=== PATIENT | female | born 1965 | race Caucasian/White ===

== ENCOUNTER 2017-02-19 16:36 | Inpatient (IN) | payer OTHER ==
[2017-02-19 18:09] LABS: Hematocrit 32 % (35-47); Hemoglobin 10.3 g/dl (12.0-16.0); Mean Corpuscular HGB Conc 32 g/dl (31-36); Mean Corpuscular Hemoglobin 28 pg (27-31); Mean Corpuscular Volume 87 fL (80-97); Mean Platelet Volume 10 um3 (7.4-10.4); Red Cell Distribution Width 13 % (10.5-15); White Blood Count 8.8 10^3/ul (3.5-10.8)
[2017-02-19 18:15] LABS: Urine Bacteria 2+ (Absent); Urine Bilirubin Negative (Negative); Urine Glucose Negative (Negative); Urine Nitrite Positive (Negative)
[2017-02-19 18:25] LABS: ALT 6 U/L (7-52); AST 8 U/L (13-39); Albumin 3.5 g/dL (3.2-5.2); Alkaline Phosphatase 37 U/L (34-104); Anion Gap 7 mmol/L (2-11); BUN/Creatinine Ratio 6.9 (8-20); Blood Urea Nitrogen 11 mg/dL (6-24); CO2 Carbon Dioxide 32 mmol/L (22-32); Calcium 9.4 mg/dL (8.6-10.3); Chloride 95 mmol/L (101-111); EGFR African American 44.1 (>60); EGFR Non-African American 34.3 (>60); Globulin 3.9 g/dL (2-4); Glucose 92 mg/dL (70-100); Potassium 3.1 mmol/L (3.5-5.0); Sodium 134 mmol/L (133-145); Total Protein 7.4 g/dL (6.4-8.9)
[2017-02-19 18:29] LABS: Benzodiazepine Urine Screen None Detected (None Detect)
--- NOTE | 2017-02-19 18:34 | ED ---
Osiel Valentino Salem, scribed for Justin Nixon MD on 02/19/17 at 1655 . Psychiatric Complaint - HPI Summary HPI Summary: Patient is a 51 y/o F who presents to the ED with a mental health complaint. She states that she has been feeling poorly for the past 6 months, worse in the last month. She states that she has been taking Wellbutrin for 4 years and Fluoxetine for 2 years, prescribed by her PCP (Dr. Torres). She reports loss of appetite and SI without a plan. She states that she was hospitalized for mental health approximately 6 year ago. - History Of Current Complaint Chief Complaint: EDMentalHealth Time Seen by Provider: 02/19/17 16:44 Hx Obtained From: Patient Onset/Duration: Gradual Onset, Lasting Weeks, Still Present Timing: Constant Severity Initially: Moderate Severity Currently: Moderate Character: Depressed Aggravating Factor(s): Nothing Alleviating Factor(s): Nothing Associated Signs And Symptoms: Positive: Negative Related History: Positive For: Prior Psychiatric Issues Has Suicidal: Reports: Thoughts. Denies: With A Plan - Allergies/Home Medications Allergies/Adverse Reactions: Allergies Allergy/AdvReac Type Severity Reaction Status Date / Time Diazepam [From Valium] Allergy Unknown Verified 02/19/17 17:08 Reaction Details Meperidine [From Demerol HCl] Allergy Unknown Verified 02/19/17 17:08 Reaction Details Midazolam [From Versed] Allergy Unknown Verified 02/19/17 17:08 Reaction Details Topiramate [From Topamax] Allergy Unknown Verified 02/19/17 17:08 Reaction Details Trazodone Allergy Unknown Verified 02/19/17 17:08 Reaction Details PMH/Surg Hx/FS Hx/Imm Hx Previously Healthy: Yes Psychiatric History: Reports: Hx Depression - Surgical History Surgery Procedure, Year, and Place: None. Infectious Disease History: No Infectious Disease History: Denies: Traveled Outside the [place] in Last 30 Days - Family History Known Family History: Positive: Hypertension, Diabetes, Other - COPD. Migraines. - Social History Alcohol Use: None Hx Substance Use: No Substance Use Type: Reports: None Hx Tobacco Use: No Review of Systems Positive: Other - Loss of appetite. Positive: Depressed, Other - SI without a plan. All Other Systems Reviewed And Are Negative: Yes Physical Exam Triage Information Reviewed: Yes Vital Signs On Initial Exam: Initial Vitals Temp Pulse Resp BP Pulse Ox 97.7 F 108 20 141/67 100 02/19/17 16:40 02/19/17 16:40 02/19/17 16:40 02/19/17 16:40 02/19/17 16:40 Vital Signs Reviewed: Yes Appearance: Positive: Well-Appearing, No Pain Distress, Obese Skin: Positive: Warm, Skin Color Reflects Adequate Perfusion, Dry Head/Face: Positive: Normal Head/Face Inspection Eyes: Positive: Normal Neck: Positive: Supple, Nontender Respiratory/Lung Sounds: Positive: Clear to Auscultation, Breath Sounds Present Cardiovascular: Positive: RRR Abdomen Description: Positive: Nontender, Soft Musculoskeletal: Positive: Normal, Strength/ROM Intact Neurological: Positive: Normal Diagnostics - Vital Signs Vital Signs Temp Pulse Resp BP Pulse Ox 02/19/17 16:40 97.7 F 108 20 141/67 100 - Laboratory Lab Results: Lab Results 02/19/17 02/19/17 02/19/17 Range/Units 17:58 17:58 18:00 WBC 8.8 (3.5-10.8) 10^3/ul RBC 3.70 L (4.0-5.4) 10^6/ul Hgb 10.3 L (12.0-16.0) g/dl Hct 32 L (35-47) % MCV 87 (80-97) fL MCH 28 (27-31) pg MCHC 32 (31-36) g/dl RDW 13 (10.5-15) % Plt Count 338 (150-450) 10^3/ul MPV 10 (7.4-10.4) um3 Neut % (Auto) 79.6 (38-83) % Lymph % (Auto) 13.0 L (25-47) % Coffee % (Auto) 6.4 (1-9) % Eos % (Auto) 0.5 (0-6) % Baso % (Auto) 0.5 (0-2) % Absolute Neuts (auto) 7.0 (1.5-7.7) 10^3/ul Absolute Lymphs (auto) 1.2 (1.0-4.8) 10^3/ul Absolute Monos (auto) 0.6 (0-0.8) 10^3/ul Absolute Eos (auto) 0 (0-0.6) 10^3/ul Absolute Basos (auto) 0 (0-0.2) 10^3/ul Absolute Nucleated RBC 0 10^3/ul Nucleated RBC % 0 Sodium 134 (133-145) mmol/L Potassium 3.1 L (3.5-5.0) mmol/L Chloride 95 L (101-111) mmol/L Carbon Dioxide 32 (22-32) mmol/L Anion Gap 7 (2-11) mmol/L BUN 11 (6-24) mg/dL Creatinine 1.60 H (0.51-0.95) mg/dL Est GFR ( Amer) 44.1 (>60) Est GFR (Non-Af Amer) 34.3 (>60) BUN/Creatinine Ratio 6.9 L (8-20) Glucose 92 (70-100) mg/dL Calcium 9.4 (8.6-10.3) mg/dL Total Bilirubin 0.30 (0.2-1.0) mg/dL AST 8 L (13-39) U/L ALT 6 L (7-52) U/L Alkaline Phosphatase 37 (34-104) U/L Total Protein 7.4 (6.4-8.9) g/dL Albumin 3.5 (3.2-5.2) g/dL Globulin 3.9 (2-4) g/dL Albumin/Globulin Ratio 0.9 L (1-3) TSH Pending Urine Color Yellow Urine Appearance Cloudy Urine pH 6.0 (5-9) Ur Specific Bovina 1.011 (1.010-1.030) Urine Protein Negative (Negative) Urine Ketones Negative (Negative) Urine Blood 1+ H (Negative) Urine Nitrate Positive H (Negative) Urine Bilirubin Negative (Negative) Urine Urobilinogen Negative (Negative) Ur Leukocyte Esterase 3+ H (Negative) Urine WBC (Auto) 3+(>20/hpf) H (Absent) Urine RBC (Auto) 3+(>10/hpf) H (Absent) Ur Squamous Epith Cells Present H (Absent) Urine Bacteria 2+ H (Absent) Hyaline Casts Present H (Absent) Urine Glucose Negative (Negative) Salicylates Pending Urine Opiates Screen (None Detect) Acetaminophen Pending Ur Barbiturates Screen (None Detect) Ur Phencyclidine Scrn (None Detect) Ur Amphetamines Screen (None Detect) U Benzodiazepines Scrn (None Detect) Urine Cocaine Screen (None Detect) U Cannabinoids Screen (None Detect) Serum Alcohol Pending 02/19/17 Range/Units 18:00 WBC (3.5-10.8) 10^3/ul RBC (4.0-5.4) 10^6/ul Hgb (12.0-16.0) g/dl Hct (35-47) % MCV (80-97) fL MCH (27-31) pg MCHC (31-36) g/dl RDW (10.5-15) % Plt Count (150-450) 10^3/ul MPV (7.4-10.4) um3 Neut % (Auto) (38-83) % Lymph % (Auto) (25-47) % Coffee % (Auto) (1-9) % Eos % (Auto) (0-6) % Baso % (Auto) (0-2) % Absolute Neuts (auto) (1.5-7.7) 10^3/ul Absolute Lymphs (auto) (1.0-4.8) 10^3/ul Absolute Monos (auto) (0-0.8) 10^3/ul Absolute Eos (auto) (0-0.6) 10^3/ul Absolute Basos (auto) (0-0.2) 10^3/ul Absolute Nucleated RBC 10^3/ul Nucleated RBC % Sodium (133-145) mmol/L Potassium (3.5-5.0) mmol/L Chloride (101-111) mmol/L Carbon Dioxide (22-32) mmol/L Anion Gap (2-11) mmol/L BUN (6-24) mg/dL Creatinine (0.51-0.95) mg/dL Est GFR ( Amer) (>60) Est GFR (Non-Af Amer) (>60) BUN/Creatinine Ratio (8-20) Glucose (70-100) mg/dL Calcium (8.6-10.3) mg/dL Total Bilirubin (0.2-1.0) mg/dL AST (13-39) U/L ALT (7-52) U/L Alkaline Phosphatase (34-104) U/L Total Protein (6.4-8.9) g/dL Albumin (3.2-5.2) g/dL Globulin (2-4) g/dL Albumin/Globulin Ratio (1-3) TSH Urine Color Urine Appearance Urine pH (5-9) Ur Specific Bovina (1.010-1.030) Urine Protein (Negative) Urine Ketones (Negative) Urine Blood (Negative) Urine Nitrate (Negative) Urine Bilirubin (Negative) Urine Urobilinogen (Negative) Ur Leukocyte Esterase (Negative) Urine WBC (Auto) (Absent) Urine RBC (Auto) (Absent) Ur Squamous Epith Cells (Absent) Urine Bacteria (Absent) Hyaline Casts (Absent) Urine Glucose (Negative) Salicylates Urine Opiates Screen None detected (None Detect) Acetaminophen Ur Barbiturates Screen Presumptive positive H (None Detect) Ur Phencyclidine Scrn None detected (None Detect) Ur Amphetamines Screen None detected (None Detect) U Benzodiazepines Scrn None detected (None Detect) Urine Cocaine Screen None detected (None Detect) U Cannabinoids Screen None detected (None Detect) Serum Alcohol Result Diagrams: 02/19/17 17:58 02/19/17 17:58 Lab Statement: Any lab studies that have been ordered have been reviewed, and results considered in the medical decision making process. Course/Dx - Course Course Of Treatment: Ms. Chery is medically cleared and awaiting a MHE. - Differential Dx/Clinical Impression Provider Diagnosis: Depression - Physician Notifications Discussed Care Of Patient With: Dr. Hopper at change of shift Discharge - Discharge Plan Condition: Stable Disposition: OTHER Discharge Disposition Comment: change of shift Referrals: Jagruti Torres DO [Primary Care Provider] - The documentation as recorded by the Osiel gray Salem accurately reflects the service I personally performed and the decisions made by , Justin Nixon MD.
[2017-02-19 18:44] LABS: Acetaminophen < 15 mcg/mL; Alcohol < 10 mg/dL (<10); Salicylate < 2.50 mg/dL (<30)
[2017-02-19 18:49] LABS: TSH (Thyroid Stimulating Horm) 0.94 mcIU/mL (0.34-5.60)
[2017-02-19] MEDS ORDERED: Ciprofloxacin TAB* 500 MG PO ONE (19:19)
[2017-02-19] MEDS ORDERED: Nicotine Inhaler* 10 MG AMP INH PRN (23:14)
[2017-02-19] MEDS ORDERED: diPHENhydraMINE PO* 50 MG PO PRN (23:16)
[2017-02-19] MEDS ORDERED: Dicyclomine CAP* 10 MG PO PRN (23:30)
[2017-02-20] MEDS: Omeprazole CAP* 20 MG PO SCH ×3 (01:00→22:08)
[2017-02-20] MEDS: Amitriptyline TAB* 100 MG PO SCH ×2 (01:00→22:07)
[2017-02-20] MEDS: FLUoxetine CAP* 20 MG PO SCH ×2 (01:00→09:30)
[2017-02-20] MEDS ORDERED: Mouth Piece, Nicotine* 1 EACH CARTRIDGE INH ONE (01:00)
[2017-02-20] MEDS: Mometasone/Formoter 200/5 MDI INH SCH ×3 (01:00→22:07)
[2017-02-20] MEDS ORDERED: Hydrochlorothiazide TAB* 25 MG PO SCH (09:00)
[2017-02-20] MEDS ORDERED: BuPROPion XL* 300 MG TAB.XL PO SCH (09:00)
[2017-02-20] MEDS: Sucralfate TAB* 1 GM PO SCH ×4 (10:17→22:08)
[2017-02-20] MEDS: Ciprofloxacin TAB* 500 MG PO SCH ×2 (15:03→22:08)
[2017-02-20 16:33] LABS: Calcium 9.4 mg/dL (8.6-10.3); EGFR African American 47.5 (>60); EGFR Non-African American 36.9 (>60); Potassium 3.4 mmol/L (3.5-5.0)
--- NOTE | 2017-02-20 16:50 | RAD ---
Indication: Urinary tract infection, acute renal injury. CT of the abdomen and pelvis was performed without oral or IV contrast administration. Coronal and sagittal reconstructed images were obtained. There is moderate degree of right hydronephrosis. Right hydroureter is noted. There is a calculus in the right distal ureter measuring approximately 12 mm in greatest dimension. This is at the level of the right sacroiliac joint. The left kidney demonstrates a nonobstructing calculi in the lower pole of the left kidney measuring up to 12 mm. No obstruction of the left kidney or ureter is noted. The liver is normal in size. No focal lesions or intrahepatic duct dilatation is noted. The spleen is normal in size. There is a hiatal hernia present. The gallbladder is partially contracted with no calcified gallstones. Common duct is not dilated. Pancreas demonstrates no mass or pancreatic duct dilatation. The spleen is normal in size. No adrenal masses are noted. No dilated loops of bowel are noted. Colon is filled with stool. Aorta and inferior vena cava are unremarkable. CT of the pelvis demonstrates no retroperitoneal or pelvic lymphadenopathy. The uterus and ovaries are otherwise unremarkable. No free fluid is identified. The bony structures are otherwise unremarkable. IMPRESSION: There is a 12 mm calculus in the right distal ureter at the inferior sacroiliac joint on the right. There is moderate degree of right hydronephrosis and hydroureter. Additional 12 mm calculi is noted in the lower pole of the left kidney without obstruction. There is a large fixed type hiatal hernia noted.
[2017-02-20] MEDS ORDERED: Buffered Lidocaine 1% SYRIN* 5 ML/SYR SYRINGE INTRADERM ONE (22:13)
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
--- NOTE | 2017-02-21 01:39 | CONS ---
[facility] MEDICINE CONSULTATION REPORT: DATE OF ADMISSION: 02/19/17 DATE OF CONSULTATION: 02/20/17 PRIMARY CARE PROVIDER: Dr. Torres. ATTENDING PHYSICIAN: Dr. Omid Davis. CONSULTING PHYSICIAN: Abeba Henry DO (dictation provided by Alyssia Pace NP ). REASON FOR CONSULTATION: UTI with acute kidney injury and right-sided flank pain. HISTORY OF PRESENT ILLNESS: Ms. Chery is a 51-year-old female with a past medical history of achalasia, status post esophagectomy in 2003 at the [facility] as well as migraines and asthma, who presented on 02/19/17, with concern for depression and was admitted to the mental health unit. Please see the information from the H and P of our mental health providers for full details. Ms. Chery had complained of dysuria at the time of admission and her urinalysis was positive with positive nitrites and 3+ leuk esterase. At that time, she received ciprofloxacin. In addition, it was noted that her creatinine was elevated up to 1.60. The patient also complains of right-sided flank pain. She has a history of kidney stones. She reports having a fever of 100.2 at home. She reports having this discomfort with dysuria and flank pain for approximately 2 weeks. She reports being seen previously in the emergency room for these complaints and completed a course of antibiotics for that; however, I do not see where she was in our emergency room for that complaint. She confirms nausea. Denies chest pain, shortness of breath. She has been eating and drinking okay. PAST MEDICAL HISTORY: 1. Lower extremity edema. 2. Migraines. 3. Asthma. 4. Achalasia, status post esophagectomy. 5. History of kidney stones. MEDICATIONS: 1. Amitriptyline 100 mg p.o. at bedtime. 2. Bupropion XL 300 mg p.o. daily. 3. Ciprofloxacin 500 mg p.o. q.12 hours. 4. Dicyclomine 10 mg p.o. q.a.c. p.r.n. 6. Fluoxetine 40 mg p.o. daily. 7. Hydrochlorothiazide 12.5 mg p.o. daily. 8. Levalbuterol 1 puff inhaled b.i.d. 9. Nicotine inhaler as needed. 10. Omeprazole 40 mg p.o. b.i.d. 11. Sucralfate 1 g p.o. 4 times a day. 12. Diphenhydramine 50 mg p.o. at bedtime. ALLERGIES: To DIAZEPAM, MEPERIDINE, MIDAZOLAM, TOPIRAMATE, and TRAZODONE. FAMILY HISTORY: The patient reports that her dad had hypertension and obstructive sleep apnea. Mom had COPD and migraines. SOCIAL HISTORY: The patient is a smoker. No reported alcohol or drug use. REVIEW OF SYSTEMS: A 14-point review of systems was completed with Ms. Chery and all those not mentioned above are negative. PHYSICAL EXAM: Vital Signs: Temperature 98.1, pulse rate 98, respiratory rate 16, O2 saturation 100% on room air, blood pressure 118/58. General: Ms. Chery is sitting up in the room. She is in no acute distress. Neuro: She is alert and oriented x3. She moves all extremities equally. There is no facial asymmetry or focal weakness. Extraocular movements are intact. Heart: S1, S2. No murmur, rub, or gallop and regular. Lungs are clear to auscultation bilaterally with no accessory muscle use and good aeration. The abdomen is soft , nontender. The patient does have right CVA tenderness. Extremities: No cyanosis or edema. Skin is intact. DIAGNOSTIC STUDIES/LAB DATA: WBC 8.8, hemoglobin 10.3, hematocrit 32, platelet count 338. Sodium 134, potassium 3.1, chloride 95, serum bicarbonate 32, BUN 11 , creatinine 1.60, glucose 92. Urine shows positive nitrites and 3+ leuk esterase. Tox screen is positive for barbiturates. ASSESSMENT: Ms. Chery is a 51-year-old female with a past medical history of depression, achalasia, status post esophagectomy, migraines, lower extremity edema and asthma, who presented to the hospital on 02/19/17 with concerns for depression. She has been admitted to the behavioral health unit, but found to have a urinary tract infection with concern for acute kidney injury and right- sided CVA tenderness. Our plans are as follows: 1. Depression. Management will continue to be per mental health providers. 2. Positive UA with acute kidney injury and right-sided CVA tenderness. The patient will go for a CT scan to assess for kidney stone or hydronephrosis. She does have a history of kidney stones. She has been started on ciprofloxacin. The last urine culture I see from our hospital was on 12/30/16, it grew E. coli that was pansensitive. I think it is safe to continue with Cipro for now and await sensitivities on the current culture. The patient has no fever. Her vitals are stable. 3. Achalasia. Continue home sucralfate and omeprazole. 4. Smoking history. The patient is encouraged to stop smoking, she does have a nicotine inhaler available. 5. DVT prophylaxis. Not indicated. 6. Disposition will be per mental health unit providers. TIME SPENT: Approximately 60 minutes were spent on the consultation of this patient, more than half time spent with her at the bedside reviewing the events leading up to this hospitalization, performing the physical examination, and reviewing the plan of care. ALYSSIA PACE NP CC: Dr. Torres* [id number]/[facility] #: [id number] SUNITA
[2017-02-21] MEDS ORDERED: Iohexol 180 (CONTRAST) 10 ML SDV IV ONE (07:18)
[2017-02-21 07:53] LABS: Manual Entry Verification HAN0055; UR Preg Internal Control QC Line Present
[2017-02-21] MEDS ORDERED: fentaNYL* 50 MCG/ML 2 ML VIAL (100 MCG VIAL) ONE (08:24)
[2017-02-21] MEDS ORDERED: cefTRIAXone VIAL(*) 1,000 MG in NS 0.9% 50 ML* 50 ML IVPB ONE (08:30)
[2017-02-21] MEDS ORDERED: Lidocaine 2% PF * 5 ML VIAL ONE (08:43)
[2017-02-21] MEDS ORDERED: Ketorolac INJ* 30 MG/ML 1 ML VIAL ONE (08:43)
[2017-02-21] MEDS ORDERED: Propofol* 10 MG/ML 20 ML BTL IV PUSH ONE (08:43)
[2017-02-21] MEDS ORDERED: Dexamethasone IV* 4 MG/ML 1 ML (4 MG) ONE (08:43)
[2017-02-21] MEDS ORDERED: Famotidine IV* 10 MG/ML 2 ML (20 mg) ONE (08:43)
[2017-02-21] MEDS ORDERED: fentaNYL* 50 MCG/ML 2 ML VIAL (100 MCG VIAL) IV PRN (09:06)
[2017-02-21] MEDS ORDERED: Ondansetron INJ* 2 MG/ML VIAL IV PRN (09:06)
[2017-02-21] MEDS ORDERED: Levalbuterol 0.63MG/3ML NEB INH PRN (09:06)
[2017-02-21] MEDS ORDERED: Acetaminophen TAB* 325 MG PO PRN (09:06)
[2017-02-21] MEDS ORDERED: PROCHLORPERAZINE INJ 5 MG/ML 2 ML VIAL IV PRN (09:06)
[2017-02-21 10:47] VITALS: BP 119/68
--- NOTE | 2017-02-21 11:07 | DS ---
Subjective - Subjective Discharge Date: 02/21/17 Subjective: Following hospitalist intervention yesterday for UTI and kidney evaluation, Nicolasa was discharged this morning to the surgical service. Treatment Course & Assessment Clinical Course & Impression: 51-year-old female with a history of extensive outpatient psychiatric treatment , one prior psychiatric hospitalization, chronic functional difficulties, chronic health problem. She is admitted due to concern over impairment and functioning and elevated distress in the setting of a subacute deterioration with weight loss, somatic problems, social withdrawal, dysphoria, and anxiety. 02/21/17 Clear for discharge to medical/surgical services. Nicolasa settled into the unit over one day, was safe on checks, and free of suicidal ideation. She cooperated with evaluations. She noted ongoing elevated stress and dysphoria, with difficulty coping. Medication management continued the outpatient medication regimen. Medical involve Hospitalist consultation for mgt. of UTI and evaluation of renal issues. On CT scan of abdomen there was a 12mm calculus in the right distal ureter. Nicolasa was discharged for surgical intervention with plan for inpatient surgical recovery with IV antibiotics. Determination on whether she returns to the unit will be as per her choice and her evaluation in that setting. Risk concern centered on deterioration of her functioning. She was not acutely suicidal and her suicidal risk is assessed as low enough for outpatient status ( factors are her benign ideation in that regard and absence of other impairing factors) - her profile, history and conditions put her at elevated chronic risk for suicide. Clear for Discharge: Other - requires other medical intervention Inpatient DSM-IV Dx: Depressed, anxiety disorder, not otherwise specified; r/o PTSD. Discharge Planning - Discharge Planning Discharge Plan: Inpatient Hospitalization Recommendations for Continuing Care: Medication Management, Psychotherapy, Primary Care Followup, Specialty Followup Discharge Planning: Prescriptions provided for discharge [] Yes [x] No Follow up care details as per medicare contact specialist arrangements.
--- NOTE | 2017-02-21 11:18 | RAD ---
CPT II Codes: 6045F Indication: Right ureteral calculi. Approximately 23 seconds of fluoroscopy time was used. 4 spot images were obtained. Retrograde pyelogram demonstrates right hydronephrosis. There is placement of a right ureteral stent. IMPRESSION: Placement of right ureteral stent.
== END 2017-02-21 09:15 | disposition short-term general hospital (02) | DRG 756 ==
LOC: ED 16:36 → BSU 02-20 00:52
PROVIDERS: ADMIT Psychiatry & Neurology Psychiatry; ATTEND Psychiatry & Neurology Psychiatry
DX: F41.8 Other specified anxiety disorders (principal); R45.851 Suicidal ideations; N20.1 Calculus of ureter; N39.0 Urinary tract infection, site not specified; Q39.5 Congenital dilatation of esophagus; B96.20 Unspecified Escherichia coli [E. coli] as the cause of diseases classified elsewhere; J45.909 Unspecified asthma, uncomplicated; M19.90 Unspecified osteoarthritis, unspecified site; K21.9 Gastro-esophageal reflux disease without esophagitis; Z79.899 Other long term (current) drug therapy; Z88.8 Allergy status to other drugs, medicaments and biological substances; Z91.410 Personal history of adult physical and sexual abuse; G43.909 Migraine, unspecified, not intractable, without status migrainosus; Z87.442 Personal history of urinary calculi; Z82.49 Family history of ischemic heart disease and other diseases of the circulatory system; Z83.6 Family history of other diseases of the respiratory system; F17.210 Nicotine dependence, cigarettes, uncomplicated; N17.9 Acute kidney failure, unspecified
CPT/HCPCS: 36415; 74176; 74420; 80048; 80053; 80307; 80320; 80329; 81003; 81015; 81025; 82570; 84300; 84443; 85025; 87077; 87086; 87186; 99222; 99238; A9270-GY; C1876; G0480; J0696; J1100; J1885; J2704; J3010

== ENCOUNTER 2017-02-21 10:57 | Observation (INO) | payer OTHER ==
[2017-02-21] MEDS ORDERED: oxyCODONE/Acetamin 5/325 MG* TAB PO PRN ×2 (11:22→11:23)
[2017-02-21] MEDS ORDERED: Acetaminophen TAB* 325 MG PO PRN (11:22)
[2017-02-21] MEDS ORDERED: Ondansetron INJ* 2 MG/ML VIAL IV PRN (11:23)
[2017-02-21] MEDS ORDERED: diPHENhydraMINE PO* 50 MG PO PRN (11:29)
[2017-02-21] MEDS ORDERED: Dicyclomine CAP* 10 MG PO PRN (11:29)
[2017-02-21] MEDS ORDERED: Nicotine Inhaler* 10 MG AMP INH PRN (11:30)
[2017-02-21] MEDS ORDERED: Levalbuterol 0.63MG/3ML NEB INH PRN (11:31)
[2017-02-21] MEDS: NS 0.9% 1000 ML* 1,000 ML IV SCH ×2 (11:41→21:38)
[2017-02-21] MEDS ORDERED: Mouth Piece, Nicotine* 1 EACH CARTRIDGE INH ONE (13:00)
[2017-02-21] MEDS: Sucralfate TAB* 1 GM PO SCH ×3 (14:33→19:59)
[2017-02-21] MEDS: Mometasone/Formoter 200/5 MDI INH SCH (19:59)
[2017-02-21] MEDS: Omeprazole CAP* 20 MG PO SCH (19:59)
[2017-02-21] MEDS ORDERED: Amitriptyline TAB* 100 MG PO SCH (21:00)
--- NOTE | 2017-02-21 23:20 | HP ---
HOSPITAL MEDICINE HISTORY AND PHYSICAL: DATE OF ADMISSION: 02/21/17 PRIMARY CARE PHYSICIAN: Dr. Torres. ATTENDING PHYSICIAN: DO Jane Wellington(dictation provided by Alyssia Pace NP) CHIEF COMPLAINT: 1. Nephrolithiasis with hydronephrosis from a 12-mm stone, now status post ureteral stenting. 2. Infected ureteral stone. HISTORY OF PRESENT ILLNESS: Ms. Chery is a 51-year-old female with a past medical history of achalasia, status post esophagectomy in 2003 at [facility] as well as migraines and asthma who I consulted on yesterday, 02/20/17, for concern of UTI and elevated creatinine while the patient was on the Mental Health Unit. The patient had been admitted to the Mental Health Unit on 02/19/17 out of concern for depression. Please see the dictated H and P from Dr. Davis for complete details. At the time of admission, the patient was found to have a UA, which was positive with positive nitrites and 3+ leukocyte esterase. The patient also had creatinine, which was 1.60. For that reason, hospital medicine was consulted. I saw the patient yesterday and she had report of 2 weeks of right-sided CVA tenderness. The patient went for a CT of the abdomen and pelvis, which did confirm that she had a 12-mm stone on the right ureter with hydronephrosis and hydroureter. There was a 12-mm calculi in the left kidney without obstruction. Dr. Thibodeaux was consulted and he took the patient to the OR this morning for ureteral stent placement. In the OR, Dr. Thibodeaux noted that the patient had significant pus during the procedure and was concerned about the development of sepsis and therefore, he has requested that she be monitored in the hospital overnight. Ms. Chery states she is feeling well today. She has less pain. She is having some hematuria. She has had no fever. PAST MEDICAL HISTORY: 1. Achalasia with history of esophagectomy, 2013. 2. Lower extremity edema. 3. Migraines. 4. Asthma. 5. History of kidney stones. 6. Depression. MEDICATIONS: 1. Rocephin 1 g IV q.24 hours. 2. Amitriptyline 100 mg p.o. at bedtime. 3. Bupropion XL 300 mg p.o. daily. 4. Dicyclomine 10 mg p.o. q.a.c. p.r.n. 5. Fluoxetine 40 mg p.o. daily. 6. Hydrochlorothiazide 12.5 mg p.o. daily. 7. Nicotine inhaler as needed. 8. Omeprazole 40 mg p.o. b.i.d. 9. Sucralfate 1 g p.o. 4 times daily. 10. Diphenhydramine 50 mg p.o. at bedtime. 11. Ipratropium inhaler as needed. ALLERGIES: To DIAZEPAM, MEPERIDINE, MIDAZOLAM, TOPIRAMATE, and TRAZODONE. FAMILY HISTORY: The patient reports that her dad had hypertension and obstructive sleep apnea. Mom had COPD and migraines. SOCIAL HISTORY: The patient is a smoker. She denies any alcohol or drug use. She is unable to name any health care proxy today. REVIEW OF SYSTEMS: A 14-point review of systems was completed with Ms. Chery and all those mentioned above are negative. PHYSICAL EXAMINATION GENERAL: Ms. Chery is lying in the bed. She is in no acute distress. LUNGS: Clear to auscultation bilaterally with no accessory muscle use and good aeration. HEART: S1, S2. No murmur, rub, or gallop and regular. ABDOMEN: Soft and nontender with bowel sounds positive x4. EXTREMITIES: No cyanosis or edema. NEUROLOGIC: She is alert. She is oriented x3. She moves all extremities equally. There is no facial asymmetry or focal weakness. Extraocular movements are intact. SKIN: Intact. DIAGNOSTIC STUDIES/LAB DATA: Laboratory data: Her last labs are from yesterday. Sodium 136, potassium 3.4, chloride 95, serum bicarbonate 34, BUN 12 , creatinine 1.50, and glucose 92. WBC 8.8, hemoglobin 10.3, hematocrit 32, and platelet count 338. ASSESSMENT: Ms. Chery is a 51-year-old female with past medical history of achalasia, status post esophagectomy; migraines; and asthma who was admitted to the Mental Health Unit on 02/19/17 with concern for depression. After admission , she was found to have a urinary tract infection with concern for an elevated creatinine and was found to have cerebrovascular accident tenderness. CT scan showed 12-mm calculus in the right ureter with hydronephrosis and hydroureter. The patient was taken to the OR today by Dr. Thibodeaux for stent placement. Our plan is as follows: 1. Nephrolithiasis with pyelonephritis: Dr. Thibodeaux noted romeo pus draining from the kidney at the time of the procedure. She has remained stable. She has no fever. Her vitals are stable. We will plan to check all her labs tomorrow. Blood cultures have been sent and the patient will continue on Rocephin per Dr. Thibodeaux's recommendation. He has further recommended that if she remains stable, she could be discharged back to Mental Health Unit, on Bactrim. 2. History of achalasia: The patient should continue all of her home medications. 3. Depression: Continue all home medications. 4. DVT prophylaxis: With SCDs. 5. Disposition: To Short Stay Surgical. TIME SPENT: Approximately 60 minutes was spent in the admission of this patient , more than half of the time was spent with her at the bedside reviewing the events leading up to this hospitalization, performing the physical examination, and reviewing my plan of care. ALYSSIA PACE NP CC: Dr. Torres* [id number]/[facility] #: [id number] SUNITA
--- NOTE | 2017-02-22 01:57 | OP ---
DATE OF OPERATION: 02/21/17 - ROOM #337 DATE OF : 69 SURGEON: Govind Thibodeaux MD ANESTHESIOLOGIST: Sukhwinder Myles MD ANESTHESIA: General. PRE-OP DIAGNOSES: 1. Distal Right ureteral calculus (1.2 cm). 2. Right hydronephrosis due to above. 3. Urinary tract infection. 4. Nonobstructing Left renal calculus, lower pole, 1.2 cm POST-OP DIAGNOSES: 1. Distal right ureteral calculus.(1.2 cm) 2. Right hydronephrosis and right pyonephrosis due to the above. 3. Urinary tract infection. 4. Nonobstructing left renal calculus (1.2 cm, lower pole). OPERATION: 1. Cystoscopy. 2. Right retrograde pyelography. 3. Placement of a right ureteral stent (6-Yemeni). INDICATION FOR PROCEDURE: Ms. Chery is a 51-year-old white female who had on and off episodes of right flank pain for the last several weeks. She was evaluated at [place] emergency room and no treatment was suggested. She was admitted to the behavioral unit at [facility] because of depression. Because of on and off episodes of right flank pain and positive urinalysis for infection , the patient was evaluated by Ms. Sanjeev NP from the hospitalist service. Urine culture grew pansensitive E. coli. A noncontrast CT of the abdomen and pelvis showed moderate right hydroureteronephrosis with 1.2 cm calculus in the distal right ureter. There was a non-obstructing 1.2 cm calculus in the lower pole calyx of the left kidney. CBC was normal showing no leukocytosis. She was afebrile and had normal vital signs. The patient was started on p.o. Cipro. She was taken to the operating room today for stent placement. PATHOLOGY: At cystoscopy, there was mild hyperemia of the bladder mucosa, but no changes to suggest acute cystitis. At fluoroscopy, a 1.2 cm radiopaque calculus was noted in the course of the right ureter at the junction between the middle and the distal third. Another 1.2 cm radiopaque calculus was seen in the area of the lower pole of the left kidney. After placement of the open-ended catheter proximal to the Rt ureteral calculus , there was a brisk hydronephrotic drip with purulent urine draining from the right kidney. After decompression of the kidney, retrograde pyelography showed resolution of the hydronephrosis. DESCRIPTION OF PROCEDURE: After successful general anesthesia, the patient was placed in the lithotomy position and was prepped and draped for cystoscopy. Cystoscopy was performed. The bladder was carefully inspected and the above findings were noted. Fluoroscopy was done and the above described calculi were noted. A flexible-tip guidewire was then introduced into the right orifice and was positioned in the area of the renal pelvis. A size 5-Yemeni open-ended catheter was then fed on top of the guidewire and there was some resistance to the introduction of the open-ended catheter at the level of the stone. The catheter was successfully introduced into the proximal ureter. The guidewire was removed and the hydronephrotic drip of purulent urine was noted. A specimen was sent for culture and sensitivity. After the hydronephrotic drip slowed down, the open-ended catheter was positioned in the area of the renal pelvis over a guidewire. A 2 cc of contrast was injected delineating the collecting system. A size 6-Yemeni stent was then placed with the proximal end coiling in the renal pelvis and the distal end coiling inside the bladder. There was good drainage of contrast from the kidney and no extravasation. The patient tolerated the procedure well and left the operating room in good condition. The plan is to observe the patient for possible sepsis. She will be continued on IV antibiotics. The patient will require right ureteroscopy and laser lithotripsy in another week or two after complete resolution of the infection. CC: Jagruti Torres DO* [id number]/[facility] #: [id number] MTDSaira
[2017-02-22 06:57] LABS: BUN/Creatinine Ratio 9.7 (8-20); Calcium 8.5 mg/dL (8.6-10.3); EGFR African American 54.1 (>60); Potassium 3.6 mmol/L (3.5-5.0)
[2017-02-22] MEDS: NS 0.9% 1000 ML* 1,000 ML IV SCH (07:44)
[2017-02-22] MEDS ORDERED: FLUoxetine CAP* 20 MG PO SCH (09:00)
[2017-02-22] MEDS ORDERED: BuPROPion XL* 300 MG TAB.XL PO SCH (09:00)
[2017-02-22] MEDS ORDERED: cefTRIAXone VIAL(*) 1,000 MG in NS 0.9% 50 ML* 50 ML IVPB SCH (09:00)
[2017-02-22] MEDS ORDERED: Sulfamethox/Trimethoprim DS 800/160* TAB PO SCH (09:00)
[2017-02-22] MEDS: Mometasone/Formoter 200/5 MDI INH SCH (09:06)
[2017-02-22] MEDS: Omeprazole CAP* 20 MG PO SCH (09:06)
[2017-02-22] MEDS: Sucralfate TAB* 1 GM PO SCH ×3 (09:16→17:02)
[2017-02-22 15:56] VITALS: BP 112/57
--- NOTE | 2017-02-23 01:13 | DS ---
DISCHARGE SUMMARY: DATE OF ADMISSION: 02/21/17 DATE OF DISCHARGE: 02/22/17 PRIMARY CARE PROVIDER: Jagruti Torres DO CONSULTING UROLOGIST: Dr. Thibodeaux. DISCHARGING PROVIDER: JOCELYN Claire SUPERVISING PHYSICIAN: Dr. Juvenal Heredia. (DICTATED BY JOCELYN CLAIRE) PRIMARY DISCHARGE DIAGNOSES: 1. Obstructing and infected ureteral stone, now status post retrograde pyelogram with ureteral stent placement. 2. Acute kidney injury secondary to ureteral obstruction - improving. SECONDARY DISCHARGE DIAGNOSES: 1. Asthma without acute exacerbation. 2. Migraine headaches. 3. Achalasia, status post surgical intervention. 4. Depression and anxiety. DISCHARGE MEDICATIONS: 1. Zofran 4 mg 3 times daily as needed for nausea and vomiting. 2. Advair 500-50 one puff twice daily. 3. Dicyclomine 10 mg p.o. twice daily. 4. Sucralfate 1 mg p.o. with meals and before bed. 5. Vitamin D3 400 mg tablet twice daily. 6. Amitriptyline 100 mg p.o. daily. 7. Fluoxetine 40 mg p.o. daily. 8. Hydrochlorothiazide 12.5 mg p.o. daily. 9. Omeprazole 40 mg p.o. daily. 10. Bactrim DS 1 tablet p.o. twice daily x7 days. 11. Wellbutrin 100 mg p.o. daily. MEDICATIONS CHANGES: 1. Discontinue Cipro. 2. Bactrim x7 days. HOSPITAL IMAGING: CT of the abdomen and pelvis, 02/20/17, demonstrates a 12 mm calculus in the right distal ureter at the inferior sacroiliac joint on the right with moderate degree of right hydronephrosis and hydroureter. There is another 12 mm calculi noted in the lower pole of the left kidney, but without obstruction. HOSPITAL COURSE: This is a 51-year-old female with history of depression and anxiety as well as migraine headaches and asthma who was admitted to the behavioral health unit on 02/20/17. At the time of admission, she had noted urinalysis suggestive of an urinary tract infection as well as elevated serum creatinine and complaints of a 2-week history of right CVA tenderness. The patient underwent CT of the abdomen and pelvis that demonstrated a 12 mm obstructing stone in the distal right ureter. The patient was subsequently taken to the operating room by Dr. Thibodeaux who completed a retrograde pyelogram with stent placement. He reported a large amount of purulent material return from behind the stone and recommended observation in the hospital overnight. The patient was subsequently admitted to the medical service for further evaluation. The patient remained afebrile overnight with near resolution of her prior flank pain, but some persistent nausea, but she is able to take orals without too much difficulty. She is still having some mild hematuria noted as well. FOLLOWUP PLAN AND DISPOSITION: The patient is being discharged back to behavioral health unit. She requires additional 7 days of Bactrim and p.r.n. use of Zofran. Due to the size of the stone, the patient will need to follow up with Dr. Thibodeaux to discuss lithotripsy or if it is able to spontaneously pass , the stents will need to be removed in the near future as well. We will plan to follow up with the patient tomorrow on the behavioral health unit to ensure that she is continuing to feel well. JOCELYN CALIRE CC: Jagruti Torres DO; Dr. Thibodeaux * [id number]/[facility] #: [id number] [facility]UV[facility] HEALTHSaira
== END 2017-02-22 18:34 ==
LOC: SSU 10:57
PROVIDERS: ADMIT Urology; ATTEND Internal Medicine
DX: N20.1 Calculus of ureter (principal); N28.9 Disorder of kidney and ureter, unspecified; J45.998 Other asthma; G43.909 Migraine, unspecified, not intractable, without status migrainosus; K22.0 Achalasia of cardia; F41.8 Other specified anxiety disorders; Z96.0 Presence of urogenital implants; R31.9 Hematuria, unspecified; F17.210 Nicotine dependence, cigarettes, uncomplicated
CPT/HCPCS: 36415; 80048; 87040; 96365; A9270-GY; G0378; J0696

== ENCOUNTER 2017-02-22 11:55 | Inpatient (IN) | payer OTHER ==
--- NOTE | 2017-02-22 12:58 | HP ---
DATE OF ADMISSION TO BEHAVIORAL SERVICES: 02/22/2017. IDENTIFYING DATA: Nicolasa Chery is a 51-year-old, domiciled, employed female with a history of prior psychiatric hospitalizations, mood and anxiety symptoms , chronic medical problems and outpatient mental health treatment. She is being readmitted to the Psychiatric Unit after receiving urgent medical and surgical attention during the course of her last psychiatric admission. HISTORY OF PRESENT ILLNESS: This is an update to the history and physical I entered in association with Nicolasa's February 20 admission to Behavioral Services. Please see that report for details of her prior history. Nicolasa was settling into the unit on the on her first day in the hospital. She was evaluated with a urinary tract infection and had some flank pain. Hospitalist consultation was performed and she was found to have renal stones requiring surgical intervention. This occurred and she has recovered uneventfully. She remains interest in psychiatric hospitalization and feels like she has "not gotten the work done" that she needs to there. She notes ongoing elevated distress over her baseline. She denies feeling unsafe onto herself and said she actually felt more unsafe on the Psychiatric Unit because of an agitated and threatening peer; however, she still believes that she can get help there. I reviewed her psychological testing results with her which showed elevated neurotic triad and social introversion, both of which correlated very well clinically. PHYSICAL ASSESSMENT: I discussed the case with JOCELYN Patel and Nicolasa is medically stable for psychiatric hospitalization today, no longer requiring IV antibiotics. CURRENT VITAL SIGNS: Temperature 98.0, blood pressure 97/51, pulse 79, respiratory rate 16. LABORATORY DATA: Basic metabolic profile had creatinine of 1.34 and calcium of 8.5 on February 22. IMPRESSION: Nicolasa is medically stable for psychiatric hospitalization. She will be followed by JOCELYN Patel for ongoing hospitalist consultation. CLINICAL SUMMARY: [id number]-old female with a history of outpatient psychiatric treatment, one prior psychiatric hospitalization, chronic health problems, and social isolation. She was initially admitted to the Psychiatric Unit on February 20 due to concern over incapacitating symptoms in the setting of medical stress. Her inpatient admission was interrupted by her requirement for urologic intervention with surgical stent placement. She is appropriate for readmission to the Psychiatric Unit on a voluntary basis as her symptoms continue to cause her distress and render her relatively impaired from her baseline functioning. ADMISSION DIAGNOSES: Anxiety disorder, not other specified; depressed; rule out posttraumatic stress disorder. TREATMENT PLAN: Continue medication management with Amitriptyline, Bupropion, Fluoxetine, and the patient's somatic regimen. Medical management will be as per Hospitalist recommendations. We will provide group milieu and individual psychotherapeutic supports. Target symptoms are elevated distress, anxiety, dysphoria, easy tearfulness, impaired coping. Estimated length of stay is four to five days. Discharge planning will involve coordination with appropriate aftercare. The patient's strengths are her intact intellectual functioning and her ability to maintain treatment alliances. [id number]/[facility] #: [id number] SUNITA
[2017-02-22] MEDS ORDERED: Al Hydrox/Mg Hydrox/Simet LIQ* 30 ML UDC PO PRN (20:38)
[2017-02-22] MEDS ORDERED: diPHENhydraMINE PO* 50 MG PO PRN (20:49)
[2017-02-22] MEDS ORDERED: Dicyclomine CAP* 10 MG PO PRN (20:49)
[2017-02-22] MEDS ORDERED: Acetaminophen TAB* 325 MG PO PRN (20:51)
[2017-02-22] MEDS ORDERED: Levalbuterol 0.63MG/3ML NEB INH PRN (20:52)
[2017-02-22] MEDS ORDERED: Nicotine Inhaler* 10 MG AMP Q2H PRN CRAVING INH (21:00)
[2017-02-22] MEDS ORDERED: Mouth Piece, Nicotine* 1 EACH CARTRIDGE INH ONE (21:00)
[2017-02-22] MEDS: Sulfamethox/Trimethoprim DS 800/160* TAB PO SCH (21:22)
[2017-02-22] MEDS: Amitriptyline TAB* 100 MG PO SCH (21:22)
[2017-02-22] MEDS: Mometasone/Formoter 200/5 MDI INH SCH (21:22)
[2017-02-22] MEDS: Omeprazole CAP* 20 MG PO SCH (21:22)
[2017-02-23] MEDS: Omeprazole CAP* 20 MG PO SCH ×2 (08:50→21:22)
[2017-02-23] MEDS: Mometasone/Formoter 200/5 MDI INH SCH ×2 (08:51→21:22)
[2017-02-23] MEDS: Vitamin THERAPEUTIC TAB PO SCH (08:51)
[2017-02-23] MEDS: Sucralfate TAB* 1 GM PO SCH ×4 (08:51→19:04)
[2017-02-23] MEDS: FLUoxetine CAP* 20 MG PO SCH (08:51)
[2017-02-23] MEDS: Sulfamethox/Trimethoprim DS 800/160* TAB PO SCH ×2 (08:52→21:23)
[2017-02-23] MEDS: BuPROPion XL* 300 MG TAB.XL PO SCH (08:52)
--- NOTE | 2017-02-23 16:16 | PN ---
Subjective - Subjective Service Type: 86563 Hosp care 25 min moderate complexity Assessment - Assessment Inpatient DSM-IV Dx: Unspecified Depressive Disorder. Unspecified Anxiety Disorder. 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 She was admitted to the short stay unit for treatment of UTI symptoms, elevated creatinine, and 2 weeks of CVA tenderness with placement of a stent into the right ureter, which drained a purulent discharge from behind a 12 mm stone visualized there. She continues on Zofran for nausea and an additional 7 day course of Bactrim on transfer back to the [facility] to address initial psychiatric complaint. She lives with her brother, with whom she gets along well, in a trailer on family property shared with her father. She would like continued care here toward the goal of stabilization away from her feeling overwhelmed. She continues on Prozac and Wellbutrin against depressive and anxiety symptoms, with amitryptiline at bedtime. Plan - Plan Treatment Plan: Name: NCIOLASA LOUIE Birthdate: 1965 [id number] Continue meds and current treatment plan. Monitor MS and safety. Encourage groups, milieu. Coordinate aftercare for discharge. Continued Medication Management: Continue Outpt Medication Medications: Current Medications Acetaminophen (Tylenol Tab*) 650 mg PO Q6H PRN PRN Reason: PAIN Last Admin: 02/23/17 15:26 Dose: 650 mg Al Hydrox/Mg Hydrox/Simethicone (Maalox Plus*) 30 ml PO Q4H PRN PRN Reason: INDIGESTION Amitriptyline HCl (Elavil Tab*) 100 mg PO BEDTIME RYLIE Last Admin: 02/22/17 21:22 Dose: 100 mg Bupropion HCl (Bupropion Xl*) 300 mg PO DAILY RYLIE Last Admin: 02/23/17 08:52 Dose: 300 mg Dicyclomine HCl (Bentyl Cap*) 10 mg PO AC PRN PRN Reason: NAUSEA, DIARRHEA Diphenhydramine HCl (Benadryl Po*) 50 mg PO BEDTIME PRN PRN Reason: INSOMNIA Fluoxetine HCl (Prozac Cap*) 40 mg PO DAILY [facility] Last Admin: 02/23/17 08:51 Dose: 40 mg Levalbuterol HCl (Xopenex 0.63mg/3ml Neb*) 0.63 mg INH Q4H PRN PRN Reason: SOB/WHEEZING Mometasone Furoate/Formoterol Fumar (Dulera 200/5 Mdi*) 1 puff INH BID [facility] Last Admin: 02/23/17 08:51 Dose: 1 puff Multivitamins (Theragran Tab*) 1 tab PO DAILY [facility] Last Admin: 02/23/17 08:51 Dose: 1 tab Nicotine (Nicotine Inhaler*) 10 mg INH Q2H PRN PRN Reason: CRAVING Omeprazole (Prilosec Cap*) 40 mg PO BID [facility] Last Admin: 02/23/17 08:50 Dose: 40 mg Oxycodone/Acetaminophen (Percocet 5/325 Tab*) 1 tab PO Q4H PRN PRN Reason: PA Sucralfate (Carafate*) 1 gm PO 0700,1100,1500,1900 [facility] Last Admin: 02/23/17 15:26 Dose: 1 gm Trimethoprim/Sulfamethoxazole (Bactrim Ds 800/160 Tab*) 1 tab PO BID [facility] Last Admin: 02/23/17 08:52 Dose: 1 tab - Discharge Plan Discharge Plan: Outpatient Follow Up
--- NOTE | 2017-02-23 17:00 | PN ---
Subjective Date of Service: 02/23/17 Interval History: This is a 51 yo female discharged from medical service yesterday after treatment for an infected, obstructing L ureteral stone who is status post retrograde pyelogram with ureteral stent placement. She reports that she is still having dyuria. Hematuria has resolved. Still occasional R flank pain. Nausea improving. Appetite is adequate. No new concerns. Objective Active Medications: Acetaminophen (Tylenol Tab*) 650 mg PO Q6H PRN PRN Reason: PAIN Last Admin: 02/23/17 15:26 Dose: 650 mg Al Hydrox/Mg Hydrox/Simethicone (Maalox Plus*) 30 ml PO Q4H PRN PRN Reason: INDIGESTION Amitriptyline HCl (Elavil Tab*) 100 mg PO BEDTIME [facility] Last Admin: 02/22/17 21:22 Dose: 100 mg Bupropion HCl (Bupropion Xl*) 300 mg PO DAILY [facility] Last Admin: 02/23/17 08:52 Dose: 300 mg Dicyclomine HCl (Bentyl Cap*) 10 mg PO AC PRN PRN Reason: NAUSEA, DIARRHEA Diphenhydramine HCl (Benadryl Po*) 50 mg PO BEDTIME PRN PRN Reason: INSOMNIA Fluoxetine HCl (Prozac Cap*) 40 mg PO DAILY [facility] Last Admin: 02/23/17 08:51 Dose: 40 mg Levalbuterol HCl (Xopenex 0.63mg/3ml Neb*) 0.63 mg INH Q4H PRN PRN Reason: SOB/WHEEZING Mometasone Furoate/Formoterol Fumar (Dulera 200/5 Mdi*) 1 puff INH BID [facility] Last Admin: 02/23/17 08:51 Dose: 1 puff Multivitamins (Theragran Tab*) 1 tab PO DAILY [facility] Last Admin: 02/23/17 08:51 Dose: 1 tab Nicotine (Nicotine Inhaler*) 10 mg INH Q2H PRN PRN Reason: CRAVING Omeprazole (Prilosec Cap*) 40 mg PO BID [facility] Last Admin: 02/23/17 08:50 Dose: 40 mg Oxycodone/Acetaminophen (Percocet 5/325 Tab*) 1 tab PO Q4H PRN PRN Reason: PA Sucralfate (Carafate*) 1 gm PO 0700,1100,1500,1900 [facility] Last Admin: 02/23/17 15:26 Dose: 1 gm Trimethoprim/Sulfamethoxazole (Bactrim Ds 800/160 Tab*) 1 tab PO BID [facility] Last Admin: 02/23/17 08:52 Dose: 1 tab Vital Signs 02/22/17 02/22/17 02/23/17 18:40 19:15 07:52 Temperature 98.2 F 98.8 F Pulse Rate 93 76 Respiratory 16 18 16 Rate Blood Pressure 136/72 122/68 (mmHg) O2 Sat by Pulse 100 94 Oximetry Oxygen Devices in Use Now: None Appearance: Well appearing middle aged female in NAD Respiratory: Symmetrical Chest Expansion and Respiratory Effort, Clear to Auscultation Cardiovascular: NL Sounds; No Murmurs; No JVD, RRR Abdominal: NL Sounds; No Tenderness; No Distention, - - no CVA TTP Extremities: No Edema Skin: No Rash or Ulcers Neurological: Alert and Oriented x 3 Assess/Plan/Problems-Billing Assessment: This is a 51 yo female with asthma, depression/anxiety and migraine HAs with recent obstructing, infecting, ureteral stone status post retrograde pyelogram with ureteral stent placement now on behavioral health unit. - Patient Problems (1) Anxiety and depression Comment: Management per psychiatry (2) Ureteral stone with hydronephrosis Comment: With associated infection Now s/p retrograde pyelogram and ureteral stent placement Cont Bactrim thru 02/26 Requires follow up with Dr Thibodeaux in ~ 2weeks (3) Asthma Comment: No exacerbation Cont home inhaled medications (4) Full code status Status and Disposition: Hospitalist group will signoff at this time. Antibiotics and follow up as specified above. We are happy to re-evaluate the patient if necessary in the future.
[2017-02-23] MEDS: Amitriptyline TAB* 100 MG PO SCH (21:22)
[2017-02-24] MEDS: Mometasone/Formoter 200/5 MDI INH SCH ×2 (08:30→20:31)
[2017-02-24] MEDS: FLUoxetine CAP* 20 MG PO SCH (08:30)
[2017-02-24] MEDS: Sucralfate TAB* 1 GM PO SCH ×4 (08:31→19:42)
[2017-02-24] MEDS: Vitamin THERAPEUTIC TAB PO SCH (08:31)
[2017-02-24] MEDS: BuPROPion XL* 300 MG TAB.XL PO SCH (08:31)
[2017-02-24] MEDS: Omeprazole CAP* 20 MG PO SCH ×2 (08:31→20:31)
[2017-02-24] MEDS: Sulfamethox/Trimethoprim DS 800/160* TAB PO SCH ×2 (08:32→20:31)
[2017-02-24] MEDS: oxyCODONE/Acetamin 5/325 MG* TAB PO PRN ×2 (14:07→20:30)
--- NOTE | 2017-02-24 15:24 | PN ---
Subjective - Subjective Service Type: 13129 Hosp care 15 min low complexity Subjective: Nicolasa reports continued depression, but denies psychotic symptoms or dangerous intent/plan. She complains of continued R flank pain, but not increased such that she would want to be seen by the hospitalist at this time. Objective - Appearance Appearance: Healthy Appearing Dysmorphic Features: No Hygiene: Normal Grooming: Fairly Well Kept - Behavior Psychomotor Activities: Normal Exhibits Abnormal Movement: No - Attitude and Relatedness Attitude and Relatedness: Cooperative Eye Contact: Poor - Speech Quality: Unpressured Latencies: Normal Quantity: Appropriate - Mood Patient's Decription of Mood: "Depressed" - Affect Observed Affect: Depressed Affect Consistent with: Dysphoria - Thought Process Patient's Thought Process: Coherent, Goal Directed Thought Content: No Passive Wish, No Suicidal Planning, No Homicidal Ideation, No Paranoid Ideation - Sensorium Experiencing Hallucinations: No, Sensorium is Clear Type of Hallucinations: Visual: No, Auditory: No, Command: No - Level of Consciousness Level of Consciousness: Alert Orientation: Yes Intact, Yes Orientated to Time, Yes Orientated to Place, Yes Orientated to Person - Impulse Control Impulse Control: Intact - Insight and Judgement Insight and Judgement: Fair - Group Participation Particating in Group Activities: Yes - Medication Management Medication Management Adherence: Yes Assessment - Assessment Merits Inpatient Hospitalization: For Stabilization, Consolidate Improvements, For Discharge Planning Inpatient DSM-IV Dx: Unspecified Depressive Disorder. Unspecified Anxiety Disorder. 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 She was admitted to the short stay unit for treatment of UTI symptoms, elevated creatinine, and 2 weeks of CVA tenderness with placement of a stent into the right ureter, which drained a purulent discharge from behind a 12 mm stone visualized there. She continues on Zofran for nausea and an additional 7 day course of Bactrim on transfer [facility] to the [facility] to address initial psychiatric complaint. She lives with her brother, with whom she gets along well, in a trailer on family property shared with her father. She would like continued care here toward the goal of stabilization away from her feeling overwhelmed. She continues on Prozac and Wellbutrin against depressive and anxiety symptoms, with amitryptiline at bedtime. 02.24.17 Nicolasa reports continuing to feel depressed, but with no dangerous intent/plan or psychosis. She reports stable R flank pain, and commits to inform us of any changes. She is equivocal about the possibility of discharge tomorrow after a family meeting. Plan - Plan Treatment Plan: Name: NICOLASA LOUIE Birthdate: 1965 [id number] Continue meds and current treatment plan. Monitor MS and safety. Encourage groups, milieu. Coordinate aftercare for discharge. Medications: Current Medications Acetaminophen (Tylenol Tab*) 650 mg PO Q6H PRN PRN Reason: PAIN Last Admin: 02/23/17 15:26 Dose: 650 mg Al Hydrox/Mg Hydrox/Simethicone (Maalox Plus*) 30 ml PO Q4H PRN PRN Reason: INDIGESTION Amitriptyline HCl (Elavil Tab*) 100 mg PO BEDTIME [facility] Last Admin: 02/23/17 21:22 Dose: 100 mg Bupropion HCl (Bupropion Xl*) 300 mg PO DAILY [facility] Last Admin: 02/24/17 08:31 Dose: 300 mg Dicyclomine HCl (Bentyl Cap*) 10 mg PO AC PRN PRN Reason: NAUSEA, DIARRHEA Diphenhydramine HCl (Benadryl Po*) 50 mg PO BEDTIME PRN PRN Reason: INSOMNIA Fluoxetine HCl (Prozac Cap*) 40 mg PO DAILY [facility] Last Admin: 02/24/17 08:30 Dose: 40 mg Levalbuterol HCl (Xopenex 0.63mg/3ml Neb*) 0.63 mg INH Q4H PRN PRN Reason: SOB/WHEEZING Mometasone Furoate/Formoterol Fumar (Dulera 200/5 Mdi*) 1 puff INH BID [facility] Last Admin: 02/24/17 08:30 Dose: 1 puff Multivitamins (Theragran Tab*) 1 tab PO DAILY [facility] Last Admin: 02/24/17 08:31 Dose: 1 tab Nicotine (Nicotine Inhaler*) 10 mg INH Q2H PRN PRN Reason: CRAVING Omeprazole (Prilosec Cap*) 40 mg PO BID [facility] Last Admin: 02/24/17 08:31 Dose: 40 mg Oxycodone/Acetaminophen (Percocet 5/325 Tab*) 1 tab PO Q4H PRN PRN Reason: PA Last Admin: 02/24/17 14:07 Dose: 1 tab Sucralfate (Carafate*) 1 gm PO 0700,1100,1500,1900 [facility] Last Admin: 02/24/17 11:19 Dose: 1 gm Trimethoprim/Sulfamethoxazole (Bactrim Ds 800/160 Tab*) 1 tab PO BID [facility] Last Admin: 02/24/17 08:32 Dose: 1 tab - Discharge Plan Discharge Plan: Outpatient Follow Up Outpatient Program: [facility]
[2017-02-24] MEDS: Amitriptyline TAB* 100 MG PO SCH (20:30)
[2017-02-25] MEDS: Sucralfate TAB* 1 GM PO SCH ×4 (08:24→19:23)
[2017-02-25] MEDS: BuPROPion XL* 150 MG TAB.XL PO SCH (08:24)
[2017-02-25] MEDS: FLUoxetine CAP* 20 MG PO SCH (08:25)
[2017-02-25] MEDS: Omeprazole CAP* 20 MG PO SCH ×2 (08:25→20:35)
[2017-02-25] MEDS: Mometasone/Formoter 200/5 MDI INH SCH ×2 (08:25→20:35)
[2017-02-25] MEDS: Sulfamethox/Trimethoprim DS 800/160* TAB PO SCH ×2 (08:26→20:35)
[2017-02-25] MEDS: Vitamin THERAPEUTIC TAB PO SCH (08:26)
--- NOTE | 2017-02-25 15:31 | PN ---
Subjective - Subjective Service Type: 75994 Hosp care 25 min moderate complexity Subjective: Family meeting held today for 30 minutes with Nicolasa, her brother Ananda, his girlfriend, Ms Eller and myself. Topic dominating discussion was work stress. She reports that she would like a change of medications to address primarily anxiety. Objective - Appearance Appearance: Well Developed/Nourished Dysmorphic Features: No Hygiene: Normal Grooming: Fairly Well Kept - Behavior Psychomotor Activities: Normal Exhibits Abnormal Movement: No - Attitude and Relatedness Attitude and Relatedness: Cooperative Eye Contact: Good - Speech Quality: Unpressured Latencies: Normal Quantity: Appropriate - Mood Patient's Decription of Mood: "Anxious" - Affect Observed Affect: Tense Affect Consistent with: Dysphoria - Thought Process Patient's Thought Process: Coherent, Goal Directed Thought Content: No Passive Wish, No Suicidal Planning, No Homicidal Ideation, No Paranoid Ideation - Sensorium Experiencing Hallucinations: No, Sensorium is Clear Type of Hallucinations: Visual: No, Auditory: No, Command: No - Level of Consciousness Level of Consciousness: Alert Orientation: Yes Intact, Yes Orientated to Time, Yes Orientated to Place, Yes Orientated to Person - Impulse Control Impulse Control: Intact - Insight and Judgement Insight and Judgement: Fair - Group Participation Particating in Group Activities: No - Medication Management Medication Management Adherence: Yes Assessment - Assessment Merits Inpatient Hospitalization: For Stabilization, Consolidate Improvements, For Discharge Planning Inpatient DSM-IV Dx: Unspecified Depressive Disorder. Unspecified Anxiety Disorder. 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 She was admitted to the short stay unit for treatment of UTI symptoms, elevated creatinine, and 2 weeks of CVA tenderness with placement of a stent into the right ureter, which drained a purulent discharge from behind a 12 mm stone visualized there. She continues on Zofran for nausea and an additional 7 day course of Bactrim on transfer back to the [facility] to address initial psychiatric complaint. She lives with her brother, with whom she gets along well, in a trailer on family property shared with her father. She would like continued care here toward the goal of stabilization away from her feeling overwhelmed. She continues on Prozac and Wellbutrin against depressive and anxiety symptoms, with amitryptiline at bedtime. 6.7.17 Nicolasa reports continuing to feel depressed, but with no dangerous intent/plan or psychosis. She reports stable R flank pain, and commits to inform us of any changes. She is equivocal about the possibility of discharge tomorrow after a family meeting. 8.17 Nicolasa has asked for a medication change that may reduce her anxiety. I have ordered hydroxyzine 25 mg q4hrs against anxiety. She has no dangerous intent or plan. She is focused on work stress as a sandhu circumstantial component of her psychological distress, and is planning to change jobs to address this. Plan - Plan Treatment Plan: Name: NICOLASA LOUIE Birthdate: 1965 [id number] Continue meds and current treatment plan, with addition of hydroxyzine against anxiety. Monitor MS and safety. Encourage groups, milieu. Coordinate aftercare for discharge. Medications: Current Medications Acetaminophen (Tylenol Tab*) 650 mg PO Q6H PRN PRN Reason: PAIN Last Admin: 02/23/17 15:26 Dose: 650 mg Al Hydrox/Mg Hydrox/Simethicone (Maalox Plus*) 30 ml PO Q4H PRN PRN Reason: INDIGESTION Amitriptyline HCl (Elavil Tab*) 100 mg PO BEDTIME [facility] Last Admin: 02/24/17 20:30 Dose: 100 mg Bupropion HCl (Wellbutrin Xl *) 450 mg PO DAILY [facility] Last Admin: 02/25/17 08:24 Dose: 450 mg Dicyclomine HCl (Bentyl Cap*) 10 mg PO AC PRN PRN Reason: NAUSEA, DIARRHEA Diphenhydramine HCl (Benadryl Po*) 50 mg PO BEDTIME PRN PRN Reason: INSOMNIA Fluoxetine HCl (Prozac Cap*) 40 mg PO DAILY [facility] Last Admin: 02/25/17 08:25 Dose: 40 mg Levalbuterol HCl (Xopenex 0.63mg/3ml Neb*) 0.63 mg INH Q4H PRN PRN Reason: SOB/WHEEZING Mometasone Furoate/Formoterol Fumar (Dulera 200/5 Mdi*) 1 puff INH BID [facility] Last Admin: 02/25/17 08:25 Dose: 1 puff Multivitamins (Theragran Tab*) 1 tab PO DAILY [facility] Last Admin: 02/25/17 08:26 Dose: 1 tab Nicotine (Nicotine Inhaler*) 10 mg INH Q2H PRN PRN Reason: CRAVING Omeprazole (Prilosec Cap*) 40 mg PO BID [facility] Last Admin: 02/25/17 08:25 Dose: 40 mg Oxycodone/Acetaminophen (Percocet 5/325 Tab*) 1 tab PO Q4H PRN PRN Reason: PA Last Admin: 02/24/17 20:30 Dose: 1 tab Sucralfate (Carafate*) 1 gm PO 0700,1100,1500,1900 [facility] Last Admin: 02/25/17 11:39 Dose: 1 gm Trimethoprim/Sulfamethoxazole (Bactrim Ds 800/160 Tab*) 1 tab PO BID [facility] Last Admin: 02/25/17 08:26 Dose: 1 tab - Discharge Plan Discharge Plan: Outpatient Follow Up
[2017-02-25] MEDS: Amitriptyline TAB* 100 MG PO SCH (20:35)
[2017-02-25] MEDS: oxyCODONE/Acetamin 5/325 MG* TAB PO PRN (20:36)
[2017-02-26] MEDS: Omeprazole CAP* 20 MG PO SCH ×2 (08:19→21:05)
[2017-02-26] MEDS: BuPROPion XL* 150 MG TAB.XL PO SCH (08:19)
[2017-02-26] MEDS: Mometasone/Formoter 200/5 MDI INH SCH ×2 (08:19→21:09)
[2017-02-26] MEDS: Sucralfate TAB* 1 GM PO SCH ×4 (08:19→21:06)
[2017-02-26] MEDS: FLUoxetine CAP* 20 MG PO SCH (08:19)
[2017-02-26] MEDS: Sulfamethox/Trimethoprim DS 800/160* TAB PO SCH ×2 (08:19→21:05)
[2017-02-26] MEDS: Vitamin THERAPEUTIC TAB PO SCH (08:19)
--- NOTE | 2017-02-26 16:15 | PN ---
Subjective - Subjective Service Type: 23382 Hosp care 15 min low complexity Subjective: Nicolasa reports improvement in depressive symptoms since the increase in Wellbutrin XL from 300 to 450 mg daily, so would like to continue at that increased dose. She does not think she is any more anxious since this dose increase, though she reports stable, continued anxiety. She reports that her right flank pain is better, and is looking forward to having the stone in her ureter removed on the . Objective - Appearance Appearance: Well Developed/Nourished Dysmorphic Features: No Hygiene: Normal Grooming: Well Kept - Behavior Psychomotor Activities: Normal Exhibits Abnormal Movement: No - Attitude and Relatedness Attitude and Relatedness: Cooperative Eye Contact: Fair - Speech Quality: Unpressured Latencies: Normal Quantity: Appropriate - Mood Patient's Decription of Mood: "I don't feel so depressed as I was. I still have anxiety." - Affect Observed Affect: Fair Affect Consistent with: Euthymia - and mildly to moderately anxious - Thought Process Patient's Thought Process: Coherent, Goal Directed Thought Content: No Passive Wish, No Suicidal Planning, No Homicidal Ideation, No Paranoid Ideation - Sensorium Experiencing Hallucinations: No, Sensorium is Clear Type of Hallucinations: Visual: No, Auditory: No, Command: No - Level of Consciousness Level of Consciousness: Alert Orientation: Yes Intact, Yes Orientated to Time, Yes Orientated to Place, Yes Orientated to Person - Impulse Control Impulse Control: Intact - Insight and Judgement Insight and Judgement: Fair - Group Participation Particating in Group Activities: Yes - Medication Management Medication Management Adherence: Yes Assessment - Assessment Merits Inpatient Hospitalization: For Stabilization, Consolidate Improvements, For Discharge Planning Inpatient DSM-IV Dx: Unspecified Depressive Disorder. Unspecified Anxiety Disorder. 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 She was admitted to the short stay unit for treatment of UTI symptoms, elevated creatinine, and 2 weeks of CVA tenderness with placement of a stent into the right ureter, which drained a purulent discharge from behind a 12 mm stone visualized there. She continues on Zofran for nausea and an additional 7 day course of Bactrim on transfer [facility] to the [facility] to address initial psychiatric complaint. She lives with her brother, with whom she gets along well, in a trailer on family property shared with her father. She would like continued care here toward the goal of stabilization away from her feeling overwhelmed. She continues on Prozac and Wellbutrin against depressive and anxiety symptoms, with amitryptiline at bedtime. 6.7.17 Nicolasa reports continuing to feel depressed, but with no dangerous intent/plan or psychosis. She reports stable R flank pain, and commits to inform us of any changes. She is equivocal about the possibility of discharge tomorrow after a family meeting. 6.8.17 Nicolasa has asked for a medication change that may reduce her anxiety. I have ordered hydroxyzine 25 mg q4hrs against anxiety. She has no dangerous intent or plan. She is focused on work stress as a sandhu circumstantial component of her psychological distress, and is planning to change jobs to address this. 6.9.17 Some improvement in depressive symptoms, with anxiety stable, so will continue at increased Wellbutrin XL dose for now despite some theoretical concern for increased liability toward anxiety/agitation with increased noradrenergic/ dopaminergic tone. Nicolasa is grateful for continued care through the weekend to further stabilize, and is looking forward to discharge Wednesday. Plan - Plan Treatment Plan: Name: NICOLASA LOUIE Birthdate: 1965 [id number] Continue meds and current treatment plan. Monitor MS and safety. Encourage groups, milieu. Coordinate aftercare for discharge. Medications: Current Medications Acetaminophen (Tylenol Tab*) 650 mg PO Q6H PRN PRN Reason: PAIN Last Admin: 02/23/17 15:26 Dose: 650 mg Al Hydrox/Mg Hydrox/Simethicone (Maalox Plus*) 30 ml PO Q4H PRN PRN Reason: INDIGESTION Amitriptyline HCl (Elavil Tab*) 100 mg PO BEDTIME [facility] Last Admin: 02/25/17 20:35 Dose: 100 mg Bupropion HCl (Wellbutrin Xl *) 450 mg PO DAILY [facility] Last Admin: 02/26/17 08:19 Dose: 450 mg Dicyclomine HCl (Bentyl Cap*) 10 mg PO AC PRN PRN Reason: NAUSEA, DIARRHEA Diphenhydramine HCl (Benadryl Po*) 50 mg PO BEDTIME PRN PRN Reason: INSOMNIA Fluoxetine HCl (Prozac Cap*) 40 mg PO DAILY [facility] Last Admin: 02/26/17 08:19 Dose: 40 mg Hydroxyzine HCl (Atarax Tab*) 25 mg PO Q4H PRN PRN Reason: ANXIETY Levalbuterol HCl (Xopenex 0.63mg/3ml Neb*) 0.63 mg INH Q4H PRN PRN Reason: SOB/WHEEZING Mometasone Furoate/Formoterol Fumar (Dulera 200/5 Mdi*) 1 puff INH BID [facility] Last Admin: 02/26/17 08:19 Dose: 1 puff Multivitamins (Theragran Tab*) 1 tab PO DAILY [facility] Last Admin: 02/26/17 08:19 Dose: 1 tab Nicotine (Nicotine Inhaler*) 10 mg INH Q2H PRN PRN Reason: CRAVING Omeprazole (Prilosec Cap*) 40 mg PO BID [facility] Last Admin: 02/26/17 08:19 Dose: 40 mg Oxycodone/Acetaminophen (Percocet 5/325 Tab*) 1 tab PO Q4H PRN PRN Reason: PA Last Admin: 02/25/17 20:36 Dose: 1 tab Sucralfate (Carafate*) 1 gm PO 0700,1100,1500,1900 [facility] Last Admin: 02/26/17 13:04 Dose: 1 gm Trimethoprim/Sulfamethoxazole (Bactrim Ds 800/160 Tab*) 1 tab PO BID [facility] Last Admin: 02/26/17 08:19 Dose: 1 tab - Discharge Plan Discharge Plan: Outpatient Follow Up
[2017-02-26] MEDS: Amitriptyline TAB* 100 MG PO SCH (21:06)
[2017-02-26] MEDS: oxyCODONE/Acetamin 5/325 MG* TAB PO PRN (21:08)
[2017-02-27] MEDS: FLUoxetine CAP* 20 MG PO SCH (07:54)
[2017-02-27] MEDS: Mometasone/Formoter 200/5 MDI INH SCH ×2 (07:54→20:57)
[2017-02-27] MEDS: Vitamin THERAPEUTIC TAB PO SCH (07:54)
[2017-02-27] MEDS: hydrOXYzine HCL TAB* 25 MG PO PRN ×2 (07:54→14:48)
[2017-02-27] MEDS: Omeprazole CAP* 20 MG PO SCH ×2 (07:54→20:56)
[2017-02-27] MEDS: Sucralfate TAB* 1 GM PO SCH ×4 (07:55→19:17)
[2017-02-27] MEDS: BuPROPion XL* 150 MG TAB.XL PO SCH (07:55)
[2017-02-27] MEDS: Sulfamethox/Trimethoprim DS 800/160* TAB PO SCH ×2 (07:55→20:56)
[2017-02-27] MEDS: Amitriptyline TAB* 100 MG PO SCH (20:57)
[2017-02-28] MEDS: Omeprazole CAP* 20 MG PO SCH ×2 (08:35→20:35)
[2017-02-28] MEDS: BuPROPion XL* 150 MG TAB.XL PO SCH (08:36)
[2017-02-28] MEDS: Sucralfate TAB* 1 GM PO SCH ×4 (08:36→18:50)
[2017-02-28] MEDS: FLUoxetine CAP* 20 MG PO SCH (08:36)
[2017-02-28] MEDS: Vitamin THERAPEUTIC TAB PO SCH (08:36)
[2017-02-28] MEDS: Mometasone/Formoter 200/5 MDI INH SCH ×2 (08:37→20:35)
[2017-02-28] MEDS: Sulfamethox/Trimethoprim DS 800/160* TAB PO SCH ×2 (08:37→20:35)
[2017-02-28] MEDS: Amitriptyline TAB* 100 MG PO SCH (20:35)
[2017-03-01] MEDS: Mometasone/Formoter 200/5 MDI INH SCH ×2 (08:22→20:17)
[2017-03-01] MEDS: BuPROPion XL* 300 MG TAB.XL PO SCH (08:23)
[2017-03-01] MEDS: FLUoxetine CAP* 20 MG PO SCH (08:23)
[2017-03-01] MEDS: Vitamin THERAPEUTIC TAB PO SCH (08:23)
[2017-03-01] MEDS: Omeprazole CAP* 20 MG PO SCH ×2 (08:23→20:17)
[2017-03-01] MEDS: Sucralfate TAB* 1 GM PO SCH ×4 (08:23→20:17)
[2017-03-01] MEDS: BuPROPion XL* 150 MG TAB.XL PO SCH (08:23)
[2017-03-01] MEDS: Sulfamethox/Trimethoprim DS 800/160* TAB PO SCH ×2 (08:23→20:17)
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
--- NOTE | 2017-03-01 13:09 | PN ---
MHU: Group Therapy Note - Service Type Service Type: [id number] Group Psychotherapy - Cognitive Behavioral Group Therapy ( CBT):Patient was attentive and participatory in CBT programming this morning, and remained in good behavioral control. Patient expressed positive insights regarding relevant treatment interventions and goals.
[2017-03-01] MEDS: Amitriptyline TAB* 100 MG PO SCH (20:17)
[2017-03-01] MEDS: oxyCODONE/Acetamin 5/325 MG* TAB PO PRN (20:18)
[2017-03-02] MEDS: Omeprazole CAP* 20 MG PO SCH ×2 (08:24→20:17)
[2017-03-02] MEDS: Sulfamethox/Trimethoprim DS 800/160* TAB PO SCH ×2 (08:24→20:18)
[2017-03-02] MEDS: FLUoxetine CAP* 20 MG PO SCH (08:24)
[2017-03-02] MEDS: Vitamin THERAPEUTIC TAB PO SCH (08:24)
[2017-03-02] MEDS: BuPROPion XL* 300 MG TAB.XL PO SCH (08:24)
[2017-03-02] MEDS: Sucralfate TAB* 1 GM PO SCH ×4 (08:24→20:17)
[2017-03-02] MEDS: Mometasone/Formoter 200/5 MDI INH SCH ×2 (09:25→20:17)
[2017-03-02] MEDS: Amitriptyline TAB* 100 MG PO SCH (20:17)
[2017-03-03] MEDS: FLUoxetine CAP* 20 MG PO SCH (08:30)
[2017-03-03] MEDS: Omeprazole CAP* 20 MG PO SCH ×2 (08:30→20:15)
[2017-03-03] MEDS: Sucralfate TAB* 1 GM PO SCH ×4 (08:30→19:06)
[2017-03-03] MEDS: Mometasone/Formoter 200/5 MDI INH SCH ×2 (08:30→20:16)
[2017-03-03] MEDS: BuPROPion XL* 300 MG TAB.XL PO SCH (08:30)
[2017-03-03] MEDS: Sulfamethox/Trimethoprim DS 800/160* TAB PO SCH ×2 (08:31→20:15)
[2017-03-03] MEDS: Vitamin THERAPEUTIC TAB PO SCH (08:31)
[2017-03-03] MEDS ORDERED: FLUoxetine CAP* 20 MG PO ONE (12:39)
--- NOTE | 2017-03-03 12:39 | PN ---
Subjective - Subjective Service Type: [id number] Hosp care 15 min low complexity Subjective: Nicolasa smiled spontaneously with me for the first time, and reports doing better - brighter outlook, less distress, able to enjoy more - has her sense of humor back. She opted to plan dc for tomorrow. We discussed meds, she opted to increase fluoxetine to target anxiety, and consider tapering off Wellbutrin in the outpt. setting, as she wonders if she needs it. I supported this plan, and advised her on risk of adverse effects with higher dose therapy in polypharmacy. Objective - Appearance Appearance: Obese Hygiene: Normal Grooming: Well Kept - Behavior Psychomotor Activities: Normal - Attitude and Relatedness Attitude and Relatedness: Superficially Cooperative Eye Contact: Good - Speech Quality: Unpressured Latencies: Normal Quantity: Appropriate - Mood Patient's Decription of Mood: "Okay" - Affect Observed Affect: Labile Affect Consistent with: Euthymia - Thought Process Patient's Thought Process: Coherent Thought Content: No Passive Wish, No Suicidal Planning, No Homicidal Ideation, No Paranoid Ideation - Sensorium Experiencing Hallucinations: No, Sensorium is Clear - Level of Consciousness Level of Consciousness: Alert - Impulse Control Impulse Control: Intact - Insight and Judgement Insight and Judgement: Fair Assessment - Assessment Merits Inpatient Hospitalization: To Initiate Treatment, For Ongoing Evaluation , Consolidate Improvements, For Discharge Planning Inpatient DSM-IV Dx: Unspecified Depressive Disorder. Unspecified Anxiety Disorder. Rule-out PTSD Clinical Impression: 51-year-old female with a history of extensive outpatient psychiatric treatment , one prior psychiatric hospitalization, chronic functional difficulties, chronic health problem. She was initially admitted to the Psychiatric Unit on February 20 due to concern over incapacitating symptoms in the setting of medical stress. Her inpatient admission was interrupted by her requirement for urologic intervention with surgical stent placement. She was readmitted to the Psychiatric Unit on a voluntary basis as her symptoms continued to cause her distress and impaired from her baseline functioning. Nicolasa is stable behaviorally here, safe on checks, adherent with routines, free of suicidal ideation. She is improved, with reduced distress, milder anxiety and less dysphoria. She no longer appears impaired by symptoms, and demonstrates improved coping. Medication management continued the outpatient medication regimen - we increased Wellbutrin, targeting mood symptoms, but Nicolasa opted to resume her prior dose citing more anxiety. No we will increase fluoxetine, targeting anxiety, with aim to possibly streamline regimen by tapering off Wellbutrin. Evaluation included the MMPI test - her profile correlated clinically - elevated neurotic trial and social introversion - consistent with somatic issues and isolating. Given her improved status, yield of further acute care is diminishing. Appropriate to plan d/c for tomorrow. Plan - Plan Treatment Plan: Name: NICOLASA LOUIE Birthdate: 1965 [id number] Continued Medication Management: Continue Outpt Medication Medications: Current Medications Acetaminophen (Tylenol Tab*) 650 mg PO Q6H PRN PRN Reason: PAIN Last Admin: 02/23/17 15:26 Dose: 650 mg Al Hydrox/Mg Hydrox/Simethicone (Maalox Plus*) 30 ml PO Q4H PRN PRN Reason: INDIGESTION Amitriptyline HCl (Elavil Tab*) 100 mg PO BEDTIME [facility] Last Admin: 03/02/17 20:17 Dose: 100 mg Bupropion HCl (Bupropion Xl*) 300 mg PO DAILY [facility] Last Admin: 03/03/17 08:30 Dose: 300 mg Dicyclomine HCl (Bentyl Cap*) 10 mg PO AC PRN PRN Reason: NAUSEA, DIARRHEA Diphenhydramine HCl (Benadryl Po*) 50 mg PO BEDTIME PRN PRN Reason: INSOMNIA Fluoxetine HCl (Prozac Cap*) 40 mg PO DAILY [facility] Last Admin: 03/03/17 08:30 Dose: 40 mg Hydroxyzine HCl (Atarax Tab*) 25 mg PO Q4H PRN PRN Reason: ANXIETY Last Admin: 02/27/17 14:48 Dose: 25 mg Levalbuterol HCl (Xopenex 0.63mg/3ml Neb*) 0.63 mg INH Q4H PRN PRN Reason: SOB/WHEEZING Mometasone Furoate/Formoterol Fumar (Dulera 200/5 Mdi*) 1 puff INH BID [facility] Last Admin: 03/03/17 08:30 Dose: 1 puff Multivitamins (Theragran Tab*) 1 tab PO DAILY [facility] Last Admin: 03/03/17 08:31 Dose: 1 tab Nicotine (Nicotine Inhaler*) 10 mg INH Q2H PRN PRN Reason: CRAVING Omeprazole (Prilosec Cap*) 40 mg PO BID [facility] Last Admin: 03/03/17 08:30 Dose: 40 mg Oxycodone/Acetaminophen (Percocet 5/325 Tab*) 1 tab PO Q4H PRN PRN Reason: JOCELYN Last Admin: 03/01/17 20:18 Dose: 1 tab Sucralfate (Carafate*) 1 gm PO 0700,1100,1500,1900 [facility] Last Admin: 03/03/17 12:36 Dose: 1 gm Trimethoprim/Sulfamethoxazole (Bactrim Ds 800/160 Tab*) 1 tab PO BID [facility] Last Admin: 03/03/17 08:31 Dose: 1 tab - Discharge Plan Discharge Plan: Outpatient Follow Up
--- NOTE | 2017-03-03 13:01 | PN ---
MHU: Group Therapy Note - Service Type Service Type: [id number] Group Psychotherapy - Cognitive Behavioral Group Therapy ( CBT):Patient was attentive and participatory in CBT programming this morning, and remained in good behavioral control. Patient expressed positive insights regarding relevant treatment interventions and goals.
[2017-03-03] MEDS: Amitriptyline TAB* 100 MG PO SCH (20:15)
[2017-03-03] MEDS: oxyCODONE/Acetamin 5/325 MG* TAB PO PRN (20:17)
[2017-03-04 07:59] VITALS: BP 127/70
[2017-03-04] MEDS: Mometasone/Formoter 200/5 MDI INH SCH (08:31)
[2017-03-04] MEDS: Omeprazole CAP* 20 MG PO SCH (08:32)
[2017-03-04] MEDS: Sulfamethox/Trimethoprim DS 800/160* TAB PO SCH (08:32)
[2017-03-04] MEDS: BuPROPion XL* 300 MG TAB.XL PO SCH (08:33)
[2017-03-04] MEDS: Sucralfate TAB* 1 GM PO SCH ×2 (08:33→10:40)
[2017-03-04] MEDS: Vitamin THERAPEUTIC TAB PO SCH (08:33)
[2017-03-04] MEDS ORDERED: FLUoxetine CAP* 20 MG PO SCH (09:00)
--- NOTE | 2017-03-04 09:22 | DS ---
Subjective - Subjective Service Types: [id number] [facility] Day Mgmt simple under 30 min Discharge Date: 03/04/17 Subjective: Nicolasa maintained her request for release. She denied setbacks or distress. She affirmed she is feeling better, coping better. She said a big part was symptom relief of abdominal discomfort. We carefully reviewed her home medicines and reconciled them with her discharge instructions which have some inaccuracies carried forward from input. She said she sees no barriers to support, care or emergency help if needed again - had a good experience here. Is interested/ready for surgery tomorrow (I provided this info to Dr. Thibodeaux's practice). Objective - Appearance Appearance: Well Developed/Nourished Hygiene: Normal Grooming: Well Kept - Behavior Psychomotor Activities: Normal - Attitude and Relatedness Attitude and Relatedness: Cooperative Eye Contact: Good - Speech Quality: Unpressured Latencies: Normal Quantity: Appropriate - Mood Patient's Decription of Mood: "Good" - Affect Observed Affect: Non-labile Affect Consistent with: Euthymia - Thought Process Patient's Thought Process: Coherent Thought Content: No Passive Wish, No Suicidal Planning, No Homicidal Ideation, No Paranoid Ideation - Sensorium Experiencing Hallucinations: No, Sensorium is Clear - Level of Consciousness Level of Consciousness: Alert - Impulse Control Impulse Control: Intact - Insight and Judgement Insight and Judgement: Fair Treatment Course & Assessment Clinical Course & Impression: 51-year-old female with a history of extensive outpatient psychiatric treatment , one prior psychiatric hospitalization, chronic functional difficulties, chronic health problem. She was initially admitted to the Psychiatric Unit on February 20 due to concern over incapacitating symptoms in the setting of medical stress. Her inpatient admission was interrupted by her requirement for urologic intervention with surgical stent placement. She was readmitted to the Psychiatric Unit on a voluntary basis as her symptoms continued to cause her distress and impaired from her baseline functioning. 03/04/17 Clear for release. Nicolasa was stable behaviorally here, safe on checks, adherent with routines, and free of suicidal ideation. Clinically she is improved, with reduced distress, milder anxiety and less dysphoria. She no longer appears impaired by symptoms, and demonstrates improved coping. Medication management continued the outpatient medication regimen - we increased Wellbutrin, targeting mood symptoms, but Nicolasa opted to resume her prior dose citing more anxiety. No we will increase fluoxetine, targeting anxiety, with aim to possibly streamline regimen by tapering off Wellbutrin in coming weeks/months. Evaluation included the MMPI test - her profile correlated clinically - elevated neurotic trial and social introversion - consistent with somatic issues and isolating. Given her improved status, yield of further acute care is low. She is appropriate for outpatient care. Concern centered on her distress levels and the impairing aspect of her symptoms. These are resolved. Nicolasa's profile puts her at increased chronic suicide risk, but acute risk is assessed as low - on basis of low symptom burden, absence of impairment, and her benign behavior/ideation on this episode. Clear for Discharge: Adequate Clinical Respons, Acceptable Safety Profile, Low Utility of Inpt Care Inpatient DSM-IV Dx: Unspecified Depressive Disorder. Unspecified Anxiety Disorder. Rule-out PTSD Discharge Planning - Discharge Planning Discharge Plan: Outpatient Follow Up Outpatient Program: [facility] Recommendations for Continuing Care: Medication Management, Psychotherapy, Specialty Followup - Urology Medications: Current Medications Amitriptyline HCl (Elavil Tab*) 100 mg PO BEDTIME [facility] Last Admin: 03/03/17 20:15 Dose: 100 mg Bupropion HCl (Bupropion Xl*) 300 mg PO DAILY [facility] Last Admin: 03/04/17 08:33 Dose: 300 mg Dicyclomine HCl (Bentyl Cap*) 10 mg PO AC PRN PRN Reason: NAUSEA, DIARRHEA Fluoxetine HCl (Prozac Cap*) 60 mg PO DAILY [facility] Last Admin: 03/04/17 08:31 Dose: 60 mg Albuterol inhaler Per home use routine - has supply Omeprazole (Prilosec Cap*) 40 mg PO BID [facility] Last Admin: 03/04/17 08:32 Dose: 40 mg Sucralfate (Carafate*) 1 gm PO 0700,1100,1500,1900 [facility] Last Admin: 03/04/17 08:33 Dose: 1 gm (completed a Bactrim course here) Discharge Planning: Prescriptions provided for discharge [x] Yes fluoxetine Follow up care details as per social work arrangements. Patient response to discharge plan: [x] eager for discharge [] agreeable with discharge plan [] ambivalent about discharge [] disagrees with discharge today
== END 2017-03-04 12:15 | disposition home or self-care (01) | DRG 754 ==
LOC: BSU 18:46
PROVIDERS: ADMIT Psychiatry & Neurology Psychiatry; ATTEND Psychiatry & Neurology Psychiatry
PROC: GZHZZZZ Group Psychotherapy (ICD-10-PCS; principal; 2017-03-01)
DX: F32.9 Major depressive disorder, single episode, unspecified (principal); F41.9 Anxiety disorder, unspecified; F43.10 Post-traumatic stress disorder, unspecified; Z87.442 Personal history of urinary calculi; G43.909 Migraine, unspecified, not intractable, without status migrainosus; J45.909 Unspecified asthma, uncomplicated; R11.0 Nausea
CPT/HCPCS: 90853; 99222; 99231; 99232; 99238; A9270-GY

== ENCOUNTER 2017-03-05 09:14 | Day surgery (SDC) | payer OTHER ==
--- NOTE | 2017-03-02 16:20 | HP ---
HISTORY AND PHYSICAL: DATE OF PLANNED ADMISSION AND SURGERY: 03/05/17 HISTORY OF PRESENT ILLNESS: Ms. Chery is a 51-year-old white female who is admitted with a distal right ureteral calculus, status post placement of right ureteral stent for cystoscopy, right ureteroscopy, laser lithotripsy, and right ureteral stent exchange. Ms. Chery was admitted to behavioral unit at [facility] because of depression on . She has reported having right flank pain and symptoms of urinary tract infections. She was evaluated by the hospitalist service and had a noncontrast CT of the abdomen and pelvis which showed an obstructing 1.2-cm calculus in the distal right ureter and a nonobstructing, 1.2-cm calculus in the lower pole calyx of the left kidney. Her urine culture grew pansensitive E. coli. The patient was started on IV antibiotics and was taken on 02/21/17 to the operating room where she had an urgent placement of a right ureteral stent. She was observed, did not have any fever or chills, and after she improved from her depression was discharged home on oral antibiotics. She has been doing fine. The patient now is admitted for definitive treatment of the right ureteral calculus. PAST MEDICAL HISTORY: Relevant for achalasia which was difficult to treat and she ended up by having a distal esophagectomy in 2003 at the [facility] with improvement in her symptoms. She had history of depression, migraines, and asthma. MEDICATIONS: She has been maintained on amitriptyline 100 mg at bedtime, bupropion 300 mg daily, dicyclomine 10 mg as needed, fluoxetine 40 mg daily, hydrochlorothiazide 12.5 mg daily. She uses inhalers as needed. She is a smoker and she uses nicotine inhaler as needed. She is also on omeprazole 40 mg twice a day, Benadryl 50 mg at bedtime, and sucralfate 1 g 4 times a day. ALLERGIES: She reports being allergic or intolerant to DIAZEPAM, MEPERIDINE, MIDAZOLAM, TOPIRAMATE, and TRAZODONE. PHYSICAL EXAMINATION There has not been any change in her physical exam compared to her recent admission and discharge. IMPRESSION: 1. A 1.2-cm calculus in the distal right ureter associated with urinary tract infection, status post placement of a right ureteral stent and treatment of the urinary infection. 2. Nonobstructing 1.2-cm calculus in the lower pole calyx of the left kidney. 3. Status post esophagectomy for achalasia. 4. History of depression, migraine, gastroesophageal reflux disease. Plan is for cystoscopy, right ureteroscopy, laser lithotripsy, and right ureteral stent exchange. She will also need to come back for treatment of the left renal calculus, but that should be done electively. I discussed the above plans with the patient. All her questions were answered. [id number]/[facility] #: [id number] SUNITA
[~2017-03-05 09:14] MED LIST: Buffered Lidocaine 0.9% SYRIN* 5 ML/SYR SYRINGE INTRADERM ONE; Dexamethasone IV* 4 MG/ML 1 ML (4 MG) IV SLOW PU ONE; Famotidine IV* 10 MG/ML 2 ML (20 mg) IV ONE
[2017-03-05] MEDS ORDERED: Famotidine IV* 10 MG/ML 2 ML (20 mg) ONE (10:26)
[2017-03-05] MEDS ORDERED: Dexamethasone IV* 4 MG/ML 1 ML (4 MG) ONE (10:26)
[2017-03-05] MEDS ORDERED: cefTRIAXone(*) 2 GM ADDV.VIAL IVPB ONE (10:26)
[2017-03-05] MEDS ORDERED: fentaNYL* 50 MCG/ML 2 ML VIAL (100 MCG VIAL) ONE (10:51)
[2017-03-05] MEDS ORDERED: Iohexol 180 (CONTRAST) 10 ML SDV IV ONE (10:53)
[2017-03-05] MEDS ORDERED: PROCHLORPERAZINE INJ 5 MG/ML 2 ML VIAL IV PRN (11:00)
[2017-03-05] MEDS ORDERED: HYDROcodone/ACETAMIN 5-325 MG* 1 TAB PO PRN (11:00)
[2017-03-05] MEDS ORDERED: oxyCODONE/Acetamin 5/325 MG* TAB PO PRN (11:00)
[2017-03-05] MEDS ORDERED: fentaNYL* 50 MCG/ML 2 ML VIAL (100 MCG VIAL) IV PRN (11:00)
[2017-03-05] MEDS ORDERED: Lidocaine 2% PF * 5 ML VIAL ONE (11:27)
[2017-03-05] MEDS ORDERED: Propofol* 10 MG/ML 20 ML BTL IV PUSH ONE (11:27)
[2017-03-05 11:41] LABS: UR Preg Internal Control QC Line Present
[2017-03-05] MEDS ORDERED: Succinylcholine* 20 MG/ML 10 ML VIAL ONE (11:47)
[2017-03-05] MEDS ORDERED: Ondansetron INJ* 2 MG/ML VIAL ONE (11:58)
[2017-03-05] MEDS ORDERED: EPHEDrine (Pressors)* 50 MG/ML VIAL ONE (12:10)
[2017-03-05] MEDS ORDERED: PROCHLORPERAZINE INJ 5 MG/ML 2 ML VIAL ONE (13:15)
--- NOTE | 2017-03-05 14:45 | RAD ---
CPT II Codes: 6045F. Indication: Right hydronephrosis. Fluoroscopic services provided for referring physician. 10 seconds of fluoroscopy time was used. 4 spot images demonstrates right hydronephrosis and placement of a right ureteral stent. IMPRESSION: FLUOROSCOPIC SERVICES PROVIDED FOR REFERRING PHYSICIAN.
[2017-03-05] MEDS ORDERED: Scopolamine 1.5 mg* PATCH TRANSDERM SCH (15:00)
[2017-03-05] MEDS ORDERED: Scopolomine PATCH Remove* 1 NOTE MISC PATCH OFF SCH (15:00)
[2017-03-05 15:10] VITALS: BP 121/69
--- NOTE | 2017-03-05 22:04 | OP ---
DATE OF OPERATION: 03/05/17 [facility] DATE OF : [birth year] SURGEON: Govind Thibodeaux MD ANESTHESIOLOGIST: Dr. Elis Anderson. ANESTHESIA: General. PRE-OP DIAGNOSES: 1. Right ureteral calculus. 2. Status post placement of right ureteral stent. POST-OP DIAGNOSES: OPERATIVE PROCEDURE: 1. Cystoscopy. 2. Right ureteroscopy. 3. Laser lithotripsy. 4. Extraction of right ureteral calculus. 5. Right retrograde pyelography and right ureteral stent exchange. INDICATION FOR PROCEDURE: Ms. Chery is a 51-year-old white female who has admitted to the hospital about 2 weeks ago and was noted to have an obstructing 1.2 cm distal right ureteral calculus associated with urinary tract infection. After IV antibiotics, she had urgent placement of right ureteral stent. She has done well and the urinary tract infection is resolved. The patient now is admitted for treatment and extraction of the right ureteral calculus. PATHOLOGY AT CYSTOSCOPY: The bladder mucosa looked normal. The distal limb of the stent was seen coming from the right orifice. Upon right ureteroscopy, a 1.2 cm calculus was noted in the distal right ureter about 4 cm above the level of the orifice. The stone was impacted and partially covered by the ureteral mucosa. There was significant degree of edema and hyperemia of the ureteral mucosa adjacent to the stone. The stone had the gross appearance of a calcium oxalate calculus. DESCRIPTION OF PROCEDURE: After successful general anesthesia, the patient was placed in the lithotomy position and was prepped and draped for a cystoscopy. Cystoscopy was performed. The right ureteral stent was removed over a guidewire and the guidewire was kept in position in the renal pelvis. A size 6.5 semirigid ureteroscope was then introduced inside the bladder. A flexible tip basket was introduced through the port of the ureteroscope and was used as a guide to introduce the ureteroscope inside the lumen of the right ureter in an atraumatic way. The calculus was identified. It was impacted and its position was noted. Using the Holmium laser, the stone was broken into multiple fragments. The fragments were then extracted with the basket. Inspection of the ureteral wall showed no evidence of any injury or perforation; however, again was noted significant degree of hyperemia and edema of the ureteral mucosa. After making sure that all of the stone fragments have been extracted, retrograde pyelography was performed. A size 7-Angolan stent was then placed with the proximal end coiling in the renal pelvis and distal end coiling inside the bladder. There was good drainage of contrast from the kidney and no extravasation. The patient tolerated the procedure well and left the operating room in good condition. The plan is to leave the stent in place for 2 to 3 weeks to allow complete healing of the ureter and then it will be removed in the office. The patient has a non-obstructing 1.2 cm calculus in the left kidney. This will need to be treated electively at a later date. [id number]/[facility] #: [id number] MTDD
== END 2017-03-05 15:30 | disposition home or self-care (01) ==
LOC: OR 09:14
PROVIDERS: ATTEND Urology
DX: N13.2 Hydronephrosis with renal and ureteral calculous obstruction (principal); F32.9 Major depressive disorder, single episode, unspecified; J45.909 Unspecified asthma, uncomplicated; F17.210 Nicotine dependence, cigarettes, uncomplicated; K21.9 Gastro-esophageal reflux disease without esophagitis; G43.909 Migraine, unspecified, not intractable, without status migrainosus; Z96.0 Presence of urogenital implants; Z98.890 Other specified postprocedural states; Z87.440 Personal history of urinary (tract) infections; Z88.5 Allergy status to narcotic agent; Z88.8 Allergy status to other drugs, medicaments and biological substances
CPT/HCPCS: 74420; 81025; 82365; 88300; C1876; J0330; J0696; J0780; J1100; J2405; J2704; J3010

== ENCOUNTER 2018-06-08 13:08 | Inpatient (IN) | payer OTHER ==
[2018-06-08] MEDS ORDERED: Amitriptyline TAB* 100 MG PO ONE (14:23)
[2018-06-08 14:28] LABS: ABS Basophils 0.1 10^3/ul (0-0.2); ABS Eosinophils 0.1 10^3/ul (0-0.6); ABS Lymphocytes 1.5 10^3/ul (1.0-4.8); ABS Monocytes 0.6 10^3/ul (0-0.8); ABS Neutrophils 4.2 10^3/ul (1.5-7.7); ABS Nucleated RBC 0 10^3/ul; Eosinophil % 1.9 % (0-6); Hematocrit 40 % (35-47); Hemoglobin 13.5 g/dl (12.0-16.0); Lymphocyte % 23.3 % (25-47); Mean Corpuscular HGB Conc 34 g/dl (31-36); Mean Corpuscular Hemoglobin 29 pg (27-31); Mean Corpuscular Volume 87 fL (80-97); Mean Platelet Volume 9.6 um3 (7.4-10.4); Nucleated Red Blood Cells % 0.1; Platelet Count 243 10^3/ul (150-450); Red Blood Count 4.62 10^6/ul (4.00-5.40); Red Cell Distribution Width 13 % (10.5-15); White Blood Count 6.4 10^3/ul (3.5-10.8)
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
[2018-06-08 14:45] LABS: EGFR Non-African American 56.7 (>60)
[2018-06-08 14:54] LABS: Urine Appearance Cloudy; Urine Blood 1+ (Negative); Urine Color Yellow; Urine Ketones Negative (Negative); Urine Protein Negative (Negative); Urine Red Blood Cell 1+(3-5/hpf) (Absent); Urine Specific Gravity 1.009 (1.010-1.030); Urine Urobilinogen Negative (Negative); Urine White Blood Cell 3+(>20/hpf) (Absent)
[2018-06-08] MEDS ORDERED: Sertraline* 25 MG TAB PO ONE (21:51)
[2018-06-08] MEDS ORDERED: Nitrofurantoin Macrocrystals* 100 MG CAP PO ONE (21:51)
--- NOTE | 2018-06-08 21:55 | ED ---
Progress - Progress Note Progress Note: The pt is a 52 y.o Female who was signed out by Dr. Jolly. Patient received mental health evaluation and was accepted for admission. She was stable throughout the ER course. - Consult/PCP Time Called: 20:30 Re-Evaluation - Re-Evaluation First Eval Re-Evaluation Time: 15:12 Comment: The patient is calm and cooperative. She was tearful and wants her book. She is continued to be on constant ops and will also be put on safety check. Course/Dx - Diagnoses Provider Diagnoses: Depression, Urinary tract infection, Anxiety - Provider Notifications Time Discussed With Above Provider: 15:01 Instructed by Provider To: Other - Consulted Dr. Hylton about the patient and he accepts the patient for admission. Discharge - Sign-Out/Discharge Documenting (check all that apply): Patient Departure - Admission to [facility] - Discharge Plan Condition: Stable Disposition: ADMITTED TO [facility] - Billing Disposition and Condition Condition: STABLE Disposition: Admitted to [facility] - Attestation Statements Document Initiated by Scribe: Yes Documenting Scribe: Sveerino Whitney Provider For Whom Scribe is Documenting (Include Credential): Dr. Zurita Scribe Attestation: ISeverino, scribed for Dr. Zurita on 06/09/18 at 0138. Scribe Documentation Reviewed: Yes Provider Attestation: The documentation as recorded by the scribSeverino correa accurately reflects the service I personally performed and the decisions made by me, Dr. Zurita
[2018-06-09] MEDS ORDERED: Al Hydrox/Mg Hydrox/Simet LIQ* 30 ML UDC PO PRN (07:29)
[2018-06-09] MEDS ORDERED: Albuterol 2.5 MG/3 ML NEB.SOL* (0.083%) INH PRN (07:53)
[2018-06-09] MEDS ORDERED: Albuterol HFA INHALER* 8 gm MDI INH PRN (07:54)
[2018-06-09] MEDS: Vitamin THERAPEUTIC TAB PO SCH (09:54)
[2018-06-09] MEDS: busPIRone TAB* 15 MG PO SCH ×2 (09:54→21:43)
[2018-06-09] MEDS: Omeprazole CAP* 20 MG PO SCH ×2 (09:55→21:43)
[2018-06-09] MEDS: Hydrochlorothiazide TAB* 25 MG PO SCH (09:55)
[2018-06-09] MEDS: Sucralfate TAB* 1 GM PO SCH ×5 (09:59→21:43)
[2018-06-09] MEDS: Mometasone/Formoter 200/5 MDI INH SCH ×2 (10:00→21:43)
[2018-06-09] MEDS: Acetaminophen TAB* 325 MG PO PRN (14:25)
[2018-06-09] MEDS ORDERED: Amitriptyline TAB* 100 MG PO SCH (16:00)
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
[2018-06-10] MEDS: Hydrochlorothiazide TAB* 25 MG PO SCH (09:05)
[2018-06-10] MEDS: busPIRone TAB* 15 MG PO SCH ×2 (09:06→21:12)
[2018-06-10] MEDS: Omeprazole CAP* 20 MG PO SCH ×2 (09:06→21:13)
[2018-06-10] MEDS: Sucralfate TAB* 1 GM PO SCH ×4 (09:06→19:10)
[2018-06-10] MEDS: Vitamin THERAPEUTIC TAB PO SCH (09:06)
[2018-06-10] MEDS: Ferrous Sulfate TAB* 325 MG PO SCH (09:06)
[2018-06-10] MEDS: Mometasone/Formoter 200/5 MDI INH SCH ×2 (09:07→21:13)
[2018-06-10] MEDS: Sertraline* 50 MG TAB PO SCH (14:08)
[2018-06-10 14:56] LABS: Urine Appearance Cloudy; Urine Blood 1+ (Negative); Urine Color Yellow; Urine Ketones Negative (Negative); Urine Protein Negative (Negative); Urine Red Blood Cell 2+(6-10/hpf) (Absent); Urine Specific Gravity 1.018 (1.010-1.030); Urine Urobilinogen Negative (Negative); Urine White Blood Cell 3+(>20/hpf) (Absent)
--- NOTE | 2018-06-10 15:43 | PN ---
Subjective - Subjective Date of Service: 06/10/18 Service Type: 69514 Hosp care 15 min low complexity Subjective: Nicolasa has a UTI, which she had originally denied symptoms of, but then later, she was tearful and described pain. Psychiatrically, she is trying to engage with other members of the community, but finds it difficult as she is quite introverted. She was encouraged to do her best to interact as well as to think of ways she could begin to understand what the sources of her problems are. Objective - Appearance Appearance: Well Developed/Nourished Dysmorphic Features: No Hygiene: Normal Grooming: Fairly Well Kept - Behavior Psychomotor Activities: Normal Exhibits Abnormal Movement: No - Attitude and Relatedness Attitude and Relatedness: Guarded Eye Contact: Poor - Speech Quality: Unpressured Latencies: Normal Quantity: Appropriate - Mood Patient's Decription of Mood: "Anxious" - Affect Observed Affect: Tense Affect Consistent with: Dysphoria - Thought Process Patient's Thought Process: Coherent Thought Content: Yes Passive Wish, Yes Suicidal Planning, No Homicidal Ideation, No Paranoid Ideation - Sensorium Experiencing Hallucinations: No, Sensorium is Clear Type of Hallucinations: Visual: No, Auditory: No, Command: No - Level of Consciousness Level of Consciousness: Alert Orientation: Yes Intact, Yes Orientated to Time, Yes Orientated to Place, Yes Orientated to Person - Impulse Control Impulse Control: Tenuous - Insight and Judgement Insight and Judgement: Impaired - Group Participation Particating in Group Activities: No - Medication Management Medication Management Adherence: Yes - Additional Observations Comments: Nicolasa is struggling with being surrounded by people when she would really like to be by herself. Her suicidal thoughts are less while here, but they still remain. Assessment - Assessment Merits Inpatient Hospitalization: For Immediate Safety Clinical Impression: Nicolasa is very anxious; it seems this is a normal state of being for her which has become exacerbated by the stressors at work and those at home as well. Plan - Plan Treatment Plan: Name: NICOLASA LOUIE Birthdate: 1965 [id number] Medications: Current Medications Acetaminophen (Tylenol Tab*) 650 mg PO Q4H PRN PRN Reason: PAIN or TEMP > 101 F Last Admin: 06/09/18 14:25 Dose: 650 mg Al Hydrox/Mg Hydrox/Simethicone (Maalox Plus*) 30 ml PO Q4H PRN PRN Reason: INDIGESTION Albuterol (Ventolin 2.5 Mg/3 Ml Neb.Patricia*) 2.5 mg INH Q6H PRN PRN Reason: SHORTNESS OF BREATH Albuterol (Ventolin Hfa Inhaler*) 1 puff INH Q4H PRN PRN Reason: SHORTNESS OF BREATH Buspirone HCl (Buspar Tab *) 15 mg PO BID [facility] Last Admin: 06/10/18 09:06 Dose: 15 mg Ferrous Sulfate (Ferrous Sulfate Tab*) 325 mg PO [id number] [facility] Last Admin: 06/10/18 09:06 Dose: 325 mg Hydrochlorothiazide (Hydrodiuril Tab*) 12.5 mg PO DAILY [facility] Last Admin: 06/10/18 09:05 Dose: 12.5 mg Hydroxyzine HCl (Atarax Tab*) 25 mg PO Q4H PRN PRN Reason: anxiety/insomnia Mometasone Furoate/Formoterol Fumar (Dulera 200/5 Mdi*) 2 puff INH BID [facility] Last Admin: 06/10/18 09:07 Dose: 2 puff Multivitamins (Theragran Tab*) 1 tab PO DAILY [facility] Last Admin: 06/10/18 09:06 Dose: 1 tab Nitrofurantoin Macrocrystals (Macrodantin*) 100 mg PO BID [facility] Stop: 06/14/18 23:59 Omeprazole (Prilosec Cap*) 40 mg PO BID [facility] Last Admin: 06/10/18 09:06 Dose: 40 mg Phenazopyridine HCl (Pyridium Tab*) 100 mg PO TID [facility] Sertraline HCl (Zoloft*) 50 mg PO DAILY [facility] Last Admin: 06/10/18 14:08 Dose: 50 mg Sucralfate (Carafate*) 1 gm PO QID [facility] Last Admin: 06/10/18 14:08 Dose: 1 gm - Discharge Plan Discharge Plan: Outpatient Follow Up Additional Comments: Nicolasa will improve if she can learn to compartmentalize her anxieties or manage them differently. The constant depression is being addressed with increased Zoloft. Her UTI is also being treated with nitrofrantoin 100 mg BID x5 days.
[2018-06-10] MEDS: Phenazopyridine TAB* 100 MG PO SCH ×2 (17:06→21:12)
[2018-06-10] MEDS: Nitrofurantoin Macrocrystals* 100 MG CAP PO SCH ×2 (17:06→21:12)
[2018-06-11] MEDS: Sucralfate TAB* 1 GM PO SCH ×4 (07:39→19:26)
[2018-06-11] MEDS: Nitrofurantoin Macrocrystals* 100 MG CAP PO SCH ×2 (10:19→20:47)
[2018-06-11] MEDS: Omeprazole CAP* 20 MG PO SCH ×2 (10:19→20:47)
[2018-06-11] MEDS: Sertraline* 50 MG TAB PO SCH (10:19)
[2018-06-11] MEDS: Phenazopyridine TAB* 100 MG PO SCH ×3 (10:19→20:47)
[2018-06-11] MEDS: busPIRone TAB* 15 MG PO SCH ×2 (10:20→20:48)
[2018-06-11] MEDS: Hydrochlorothiazide TAB* 25 MG PO SCH (10:20)
[2018-06-11] MEDS: Vitamin THERAPEUTIC TAB PO SCH (10:20)
[2018-06-11] MEDS: Mometasone/Formoter 200/5 MDI INH SCH ×2 (10:23→20:50)
[2018-06-11] MEDS: hydrOXYzine HCL TAB* 25 MG PO PRN (20:47)
[2018-06-12] MEDS: Sucralfate TAB* 1 GM PO SCH ×4 (08:05→19:28)
[2018-06-12] MEDS: Vitamin THERAPEUTIC TAB PO SCH (08:05)
[2018-06-12] MEDS: Nitrofurantoin Macrocrystals* 100 MG CAP PO SCH ×2 (08:05→21:01)
[2018-06-12] MEDS: busPIRone TAB* 15 MG PO SCH ×2 (08:05→21:01)
[2018-06-12] MEDS: Sertraline* 50 MG TAB PO SCH (08:05)
[2018-06-12] MEDS: Hydrochlorothiazide TAB* 25 MG PO SCH (08:05)
[2018-06-12] MEDS: Phenazopyridine TAB* 100 MG PO SCH ×3 (08:06→21:01)
[2018-06-12] MEDS: Omeprazole CAP* 20 MG PO SCH ×2 (08:06→21:01)
[2018-06-12] MEDS: Mometasone/Formoter 200/5 MDI INH SCH ×2 (08:06→20:59)
[2018-06-12] MEDS: Acetaminophen TAB* 325 MG PO PRN (11:41)
--- NOTE | 2018-06-12 17:21 | PN ---
Subjective - Subjective Date of Service: 06/12/18 Service Type: 03668 Hosp care 15 min low complexity Subjective: Nicolasa stays in bed most of the time citing "nothing to do around and boredom" . Reports of experiencing migraine headache all day today. Tylenol didn't help. Questioning why Elavil was discontinued. Wants to try Motrin. Denies hallucination, delusions, SI or HI. Objective - Appearance Appearance: Obese Dysmorphic Features: No Hygiene: Normal Grooming: Fairly Well Kept - Behavior Psychomotor Activities: Abnormal-Decreased - Attitude and Relatedness Attitude and Relatedness: Appropriate Eye Contact: Poor - Speech Quality: Unpressured Latencies: Normal Quantity: Appropriate - Mood Patient's Decription of Mood: "Terrible" - Affect Observed Affect: Depressed - Thought Process Patient's Thought Process: Coherent, Goal Directed Thought Content: No Passive Wish, No Suicidal Planning, No Homicidal Ideation, No Paranoid Ideation - Sensorium Experiencing Hallucinations: No, Sensorium is Clear Type of Hallucinations: Visual: No, Auditory: No, Command: No - Level of Consciousness Level of Consciousness: Alert Orientation: Yes Intact, Yes Orientated to Time, Yes Orientated to Place, Yes Orientated to Person - Impulse Control Impulse Control: Intact - Insight and Judgement Insight and Judgement: Fair - Group Participation Particating in Group Activities: No - Medication Management Medication Management Adherence: Yes Assessment - Assessment Merits Inpatient Hospitalization: For Stabilization, For Discharge Planning Clinical Impression: Nicolasa is very anxious; it seems this is a normal state of being for her which has become exacerbated by the stressors at work and those at home as well. Plan - Plan Treatment Plan: Name: NICOLASA LOUIE Birthdate: 1965 [id number] Continued Medication Management: Continue Outpt Medication Medications: Current Medications Acetaminophen (Tylenol Tab*) 650 mg PO Q4H PRN PRN Reason: PAIN or TEMP > 101 F Last Admin: 06/12/18 11:41 Dose: 650 mg Al Hydrox/Mg Hydrox/Simethicone (Maalox Plus*) 30 ml PO Q4H PRN PRN Reason: INDIGESTION Albuterol (Ventolin 2.5 Mg/3 Ml Neb.Patricia*) 2.5 mg INH Q6H PRN PRN Reason: SHORTNESS OF BREATH Albuterol (Ventolin Hfa Inhaler*) 1 puff INH Q4H PRN PRN Reason: SHORTNESS OF BREATH Buspirone HCl (Buspar Tab *) 15 mg PO BID [facility] Last Admin: 06/12/18 08:05 Dose: 15 mg Ferrous Sulfate (Ferrous Sulfate Tab*) 325 mg PO [id number]@0900 [facility] Last Admin: 06/10/18 09:06 Dose: 325 mg Hydrochlorothiazide (Hydrodiuril Tab*) 12.5 mg PO DAILY [facility] Last Admin: 06/12/18 08:05 Dose: 12.5 mg Hydroxyzine HCl (Atarax Tab*) 25 mg PO Q4H PRN PRN Reason: anxiety/insomnia Last Admin: 06/11/18 20:47 Dose: 25 mg Mometasone Furoate/Formoterol Fumar (Dulera 200/5 Mdi*) 2 puff INH BID [facility] Last Admin: 06/12/18 08:06 Dose: 2 puff Multivitamins (Theragran Tab*) 1 tab PO DAILY [facility] Last Admin: 06/12/18 08:05 Dose: 1 tab Nitrofurantoin Macrocrystals (Macrodantin*) 100 mg PO BID [facility] Stop: 06/14/18 23:59 Last Admin: 06/12/18 08:05 Dose: 100 mg Omeprazole (Prilosec Cap*) 40 mg PO BID [facility] Last Admin: 06/12/18 08:06 Dose: 40 mg Phenazopyridine HCl (Pyridium Tab*) 100 mg PO TID [facility] Last Admin: 06/12/18 14:07 Dose: 100 mg Sertraline HCl (Zoloft*) 50 mg PO DAILY [facility] Last Admin: 06/12/18 08:05 Dose: 50 mg Sucralfate (Carafate*) 1 gm PO 0700,1100,1500,1900 [facility] Last Admin: 06/12/18 14:07 Dose: 1 gm - Discharge Plan Discharge Plan: Outpatient Follow Up Outpatient Program: [facility]
[2018-06-12] MEDS ORDERED: Ibuprofen TAB* 800 MG PO PRN (17:24)
[2018-06-12] MEDS: hydrOXYzine HCL TAB* 25 MG PO PRN (21:03)
[2018-06-13] MEDS: Acetaminophen TAB* 325 MG PO PRN ×2 (02:27→11:59)
[2018-06-13] MEDS: Sucralfate TAB* 1 GM PO SCH ×4 (07:39→19:14)
[2018-06-13] MEDS: Mometasone/Formoter 200/5 MDI INH SCH ×2 (10:12→21:01)
[2018-06-13] MEDS: Hydrochlorothiazide TAB* 25 MG PO SCH (10:14)
[2018-06-13] MEDS: Omeprazole CAP* 20 MG PO SCH ×2 (10:15→21:00)
[2018-06-13] MEDS: Phenazopyridine TAB* 100 MG PO SCH ×3 (10:15→21:00)
[2018-06-13] MEDS: Ferrous Sulfate TAB* 325 MG PO SCH (10:16)
[2018-06-13] MEDS: Nitrofurantoin Macrocrystals* 100 MG CAP PO SCH ×2 (10:17→21:00)
[2018-06-13] MEDS: Vitamin THERAPEUTIC TAB PO SCH (10:17)
[2018-06-13] MEDS: busPIRone TAB* 15 MG PO SCH ×2 (10:17→21:00)
[2018-06-13] MEDS: Sertraline* 50 MG TAB PO SCH (10:18)
[2018-06-13] MEDS ORDERED: Aspirin TAB* 325 MG PO PRN (11:34)
--- NOTE | 2018-06-13 15:48 | PN ---
Subjective - Subjective Date of Service: 06/13/18 Service Type: 13119 Hosp care 25 min moderate complexity Subjective: Nicolasa has a headache. She believes this is due to the discontinuation of Elavil. I have explained my reasoning to her (risk of overdose I perceive to be high), and we have worked hard to increase treatment of the headache by giving her the components of Excedrin, which helps her greatly outpatient with her migraines. She has not gone to groups; she finds them quite overstimulating. She discusses asking her brother and his girlfriend to leave the trailer and is making plans to ask them to leave at the end of July. She plans to have a meeting with her brother and her therapist to discuss her need to have him move out. Objective - Appearance Appearance: Well Developed/Nourished, Obese Dysmorphic Features: No Hygiene: Normal Grooming: Fairly Well Kept - Behavior Psychomotor Activities: Normal Exhibits Abnormal Movement: No - Attitude and Relatedness Attitude and Relatedness: Needy Eye Contact: Fair - Speech Quality: Unpressured Latencies: Normal Quantity: Copious - Mood Patient's Decription of Mood: "Okay" - Affect Observed Affect: Depressed Affect Consistent with: Dysphoria - Thought Process Patient's Thought Process: Coherent, Goal Directed Thought Content: Yes Passive Wish, No Suicidal Planning, No Homicidal Ideation, No Paranoid Ideation - Sensorium Experiencing Hallucinations: No, Sensorium is Clear Type of Hallucinations: Visual: No, Auditory: No, Command: No - Level of Consciousness Level of Consciousness: Alert Orientation: Yes Intact, Yes Orientated to Time, Yes Orientated to Place, Yes Orientated to Person - Impulse Control Impulse Control: Intact - Insight and Judgement Insight and Judgement: Fair - Group Participation Particating in Group Activities: No - Medication Management Medication Management Adherence: Yes - Additional Observations Comments: Nicolasa is struggling with being surrounded by people when she would really like to be by herself. Her suicidal thoughts are less while here, but they still remain. Nevertheless, she states she would never act on them. She now has a room to herself, which she finds very soothing. Assessment - Assessment Merits Inpatient Hospitalization: For Immediate Safety, For Stabilization, Pending Safe DC Plan Clinical Impression: Nicolasa is very anxious; it seems this is a normal state of being for her which has become exacerbated by the stressors at work and those at home as well. She has relaxed somewhat while she has been here. She has used this time to discover what she would like to do to improve her situation outpatient and at home. She remains anxious and depressed, but does manage a smile when thinking about the future. Plan - Plan Treatment Plan: Name: NICOLASA LOUIE Birthdate: 1965 [id number] Medications: Current Medications Acetaminophen (Tylenol Tab*) 650 mg PO Q4H PRN PRN Reason: PAIN or TEMP > 101 F Last Admin: 06/13/18 11:59 Dose: 650 mg Al Hydrox/Mg Hydrox/Simethicone (Maalox Plus*) 30 ml PO Q4H PRN PRN Reason: INDIGESTION Albuterol (Ventolin 2.5 Mg/3 Ml Neb.Patricia*) 2.5 mg INH Q6H PRN PRN Reason: SHORTNESS OF BREATH Albuterol (Ventolin Hfa Inhaler*) 1 puff INH Q4H PRN PRN Reason: SHORTNESS OF BREATH Aspirin (Aspirin Tab*) 650 mg PO Q4H PRN PRN Reason: PAIN Last Admin: 06/13/18 11:59 Dose: 650 mg Buspirone HCl (Buspar Tab *) 15 mg PO BID [facility] Last Admin: 06/13/18 10:17 Dose: 15 mg Ferrous Sulfate (Ferrous Sulfate Tab*) 325 mg PO [id number]@0900 [facility] Last Admin: 06/13/18 10:16 Dose: 325 mg Hydrochlorothiazide (Hydrodiuril Tab*) 12.5 mg PO DAILY [facility] Last Admin: 06/13/18 10:14 Dose: 12.5 mg Hydroxyzine HCl (Atarax Tab*) 25 mg PO Q4H PRN PRN Reason: anxiety/insomnia Last Admin: 06/12/18 21:03 Dose: 25 mg Mometasone Furoate/Formoterol Fumar (Dulera 200/5 Mdi*) 2 puff INH BID [facility] Last Admin: 06/13/18 10:12 Dose: 2 puff Multivitamins (Theragran Tab*) 1 tab PO DAILY [facility] Last Admin: 06/13/18 10:17 Dose: 1 tab Nitrofurantoin Macrocrystals (Macrodantin*) 100 mg PO BID [facility] Stop: 06/14/18 23:59 Last Admin: 06/13/18 10:17 Dose: 100 mg Omeprazole (Prilosec Cap*) 40 mg PO BID [facility] Last Admin: 06/13/18 10:15 Dose: 40 mg Phenazopyridine HCl (Pyridium Tab*) 100 mg PO TID [facility] Last Admin: 06/13/18 14:14 Dose: 100 mg Sertraline HCl (Zoloft*) 50 mg PO DAILY [facility] Last Admin: 06/13/18 10:18 Dose: 50 mg Sucralfate (Carafate*) 1 gm PO 0700,1100,1500,1900 [facility] Last Admin: 06/13/18 12:04 Dose: 1 gm - Discharge Plan Discharge Plan: Outpatient Follow Up Additional Comments: Nicolasa will improve if she can learn to compartmentalize her anxieties or manage them differently, such as by taking action to reduce her stressors. The constant depression is being addressed with increased Zoloft. Her UTI is also being treated with nitrofurantoin 100 mg BID x5 days. Nicolasa has made plans to talk to her brother to plan with him when he will move out.She will ask her therapist for help confronting him with this request. She is not interested in legally removing them. She continues to wait for her brother and his girlfriend to receive her Social Security check for disability, but she is reconsidering the wait, as she has lived with the two of them plus her nephew for seven years.
[2018-06-14] MEDS: Mometasone/Formoter 200/5 MDI INH SCH (08:38)
[2018-06-14] MEDS: Omeprazole CAP* 20 MG PO SCH (08:38)
[2018-06-14] MEDS: busPIRone TAB* 15 MG PO SCH (08:39)
[2018-06-14] MEDS: Sertraline* 50 MG TAB PO SCH (08:39)
[2018-06-14] MEDS: Phenazopyridine TAB* 100 MG PO SCH (08:40)
[2018-06-14] MEDS: Sucralfate TAB* 1 GM PO SCH ×2 (08:40→12:24)
[2018-06-14] MEDS: Vitamin THERAPEUTIC TAB PO SCH (08:40)
[2018-06-14] MEDS: Nitrofurantoin Macrocrystals* 100 MG CAP PO SCH (08:41)
[2018-06-14] MEDS: Hydrochlorothiazide TAB* 25 MG PO SCH (08:41)
[2018-06-14 08:44] VITALS: BP 131/58
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
== END 2018-06-14 12:06 | disposition home or self-care (01) | DRG 754 ==
LOC: ED 13:08 → BSU 22:00
PROVIDERS: ADMIT Psychiatry & Neurology Psychiatry; ATTEND Psychiatry & Neurology Psychiatry
DX: F32.9 Major depressive disorder, single episode, unspecified (principal); N39.0 Urinary tract infection, site not specified; R45.851 Suicidal ideations; F41.1 Generalized anxiety disorder; M79.7 Fibromyalgia
CPT/HCPCS: 36415; 80053; 80061; 80307; 80320; 80329; 81003; 81015; 82550; 83036; 84443; 85025; 87086; 90686; 93005; 99222; 99231; 99232; 99238; 99284; A9270-GY; G0480